=== PATIENT | female | born 1935 | race Caucasian/White ===

== ENCOUNTER 2021-12-02 09:14 | Inpatient (IN) ==
[2021-12-02 10:23] LABS: Basophils % 0.5 % (0.0-0.8); Eosinophils # 0.2 10*3/uL (0.0-0.87); Eosinophils % 1.8 % (0.00-10.9); Hematocrit 36.8 VOL% (35.7-47.0); Hemoglobin 12.5 GM/DL (12.0-16.0); Immature Granulocytes % 0.3 %; Immature Granulocytes Absolute 0.03 #; Lymphocytes # 2.1 10*3/uL (1.4-4.0); Lymphocytes % 23.5 % (21.3-54.2); Mean Corpuscular Volume 91.8 FL (87-102); Mean Platelet Volume 10.2 FL (9.6-12.0); Monocytes % 11.2 % (1.7-12.7); Neutrophils % 62.7 % (38.7-73.9); Platelet Count 221 T/CUMM (130-400); Red Blood Count 4.01 MC/CUMM (3.8-5.5); White Blood Count 8.7 T/CUMM (4-12)
[2021-12-02 10:37] LABS: Albumin 2.6 G/DL (3.4-5.0); Bilirubin,Total 0.7 MG/DL (0.20-1.00); Calcium 8.8 MG/DL (8.5-10.1); Osmolality,Calculated 281.1 MOS/KG (273-304); Potassium 4.2 MMOL/L (3.5-5.1); Total Protein 6.6 G/DL (6.4-8.2)
[2021-12-02] MEDS ORDERED: DEXAMETHASONE 4 MG/1 ML VIAL IV STA (12:27)
[2021-12-02] MEDS ORDERED: ACETAMINOPHEN 325 MG TABLET PO PRN (12:47)
[2021-12-02] MEDS ORDERED: ONDANSETRON 4 MG/2 ML VIAL IV PRN (12:47)
[2021-12-02 13:30] LABS: Total Protein 7.2 G/DL (6.4-8.2)
[2021-12-02] MEDS ORDERED: GLUCAGON 1 MG VIAL IM PRN (15:24)
[2021-12-02] MEDS ORDERED: DEXTROSE 10% 250 ML BAG IV PRN (15:40)
[2021-12-02] MEDS: DEXAMETHASONE 10 MG/1 ML VIAL IV SCH (17:20)
[2021-12-02 18:10] LABS: Urine Appearance Cloudy (Clear); Urine Color Light Yellow (Yellow)
[2021-12-02 18:11] LABS: Bilirubin,Urine Negative (Negative); Blood, Urine Moderate mg/dL (Negative); Glucose,Urine (UA) 100 mg/dL (Negative); Ketones,Urine Negative (Negative); Nitrite,Urine Negative (Negative); Protein,Urine 30 mg/dL (Negative); Urine Urobilinogen 0.2 eU/dL (<2.0)
[2021-12-02] MEDS: DOCUSATE SODIUM 100 MG CAPSULE PO SCH (20:21)
[2021-12-02] MEDS: INSULIN LISPRO 100 UNIT/ML SUBCUT SCH (21:48)
[2021-12-03] MEDS ORDERED: INSULIN LISPRO 100 UNIT/ML SUBCUT ONE (00:27)
[2021-12-03] MEDS ORDERED: oxyCODONE/ACETAMINOPHEN 5-325 MG TABLET PO PRN (03:15)
[2021-12-03] MEDS ORDERED: CLORAZEPATE 7.5 MG TABLET PO PRN ×3 (04:03→20:35)
[2021-12-03] MEDS: DEXAMETHASONE 10 MG/1 ML VIAL IV SCH ×2 (05:50→16:49)
[2021-12-03 07:53] LABS: Immunoglobulin A (Chem) 254 MG/DL (70-400); Immunoglobulin G (Chem) 1270 MG/DL (700-1600); Immunoglobulin M (Chem) 70 MG/DL (40-230); Total Protein (Chem) 7.2 G/DL (6.4-8.3)
[2021-12-03] MEDS: INSULIN LISPRO 100 UNIT/ML SUBCUT SCH ×4 (08:53→21:20)
[2021-12-03] MEDS: amLODIPine 5 MG TABLET PO SCH (08:54)
[2021-12-03] MEDS ORDERED: MAGNESIUM CITRATE 300 ML BOTTLE PO SCH (09:00)
[2021-12-03] MEDS ORDERED: ISOSORBIDE MONONITRATE 20 MG TABLET PO SCH ×2 (09:00→09:30)
[2021-12-03] MEDS ORDERED: CITALOPRAM 20 MG TABLET PO SCH (09:00)
[2021-12-03] MEDS ORDERED: ASPIRIN 325 MG TABLET PO SCH (09:00)
[2021-12-03] MEDS: carvediloL 25 MG TABLET PO SCH ×2 (09:01→16:48)
[2021-12-03] MEDS: DOXAZOSIN 1 MG TABLET PO SCH (09:01)
[2021-12-03] MEDS: LEVOTHYROXINE 25 MCG TABLET PO SCH (10:03)
[2021-12-03 11:05] LABS: Albumin (SPE) 3.3 G/DL (3.2-5.3); Albumin (SPE) Rel % 46.4 %; Alpha 1 (SPE) 0.3 G/DL (0.1-0.4); Alpha 1 (SPE) Rel % 3.8 %; Alpha 2 (SPE) 1.1 G/DL (0.4-1.0); Alpha 2 (SPE) Rel % 15.1 %; Beta (SPE) 0.8 G/DL (0.5-1.1); Beta (SPE) Rel % 11.6 %; Gamma (SPE) Rel % 23.1 %
[2021-12-03 11:09] LABS: Gamma (SPE) 1.7 G/DL (0.7-1.7)
[2021-12-03] MEDS ORDERED: DEXTROSE 50% 25 GM/50 ML VIAL IV PRN (12:47)
[2021-12-03] MEDS: PREGABALIN 50 MG CAPSULE PO SCH (12:51)
[2021-12-03] MEDS: PANTOPRAZOLE 40 MG TABLET PO SCH (12:51)
[2021-12-03] MEDS: MULTIVITAMIN (CENTRUM) TABLET PO SCH (12:51)
[2021-12-03] MEDS: ISOSORBIDE DINITRATE 20 MG TABLET PO SCH (12:51)
[2021-12-03] MEDS: LORATADINE 10 MG TABLET PO SCH (12:52)
[2021-12-03] MEDS: CALCIUM (CARBONATE)/VITAMIN D 600 MG-400 UNIT TABLET PO SCH (12:52)
[2021-12-03] MEDS: POTASSIUM CHLORIDE 20 MEQ TABLET PO SCH (12:52)
[2021-12-03] MEDS: DOCUSATE SODIUM 100 MG CAPSULE PO SCH ×2 (12:52→21:19)
[2021-12-03] MEDS: cloNIDine 0.1 MG TABLET PO SCH (16:48)
[2021-12-03] MEDS: SIMVASTATIN 10 MG TABLET PO SCH (21:19)
[2021-12-03] MEDS: INSULIN GLARGINE 100 UNIT/ML SUBCUT SCH (21:20)
[2021-12-04] MEDS: DEXAMETHASONE 10 MG/1 ML VIAL IV SCH ×2 (04:05→16:53)
[2021-12-04 05:04] LABS: Basophils % 0.1 % (0.0-0.8); Hematocrit 34.5 VOL% (35.7-47.0); Hemoglobin 11.5 GM/DL (12.0-16.0); Immature Granulocytes % 0.8 %; Immature Granulocytes Absolute 0.08 #; Lymphocytes # 1.2 10*3/uL (1.4-4.0); Lymphocytes % 11.8 % (21.3-54.2); Mean Corpuscular HGB Conc 33.3 GM/DL (32-36); Mean Corpuscular Volume 93.2 FL (87-102); Mean Platelet Volume 10.1 FL (9.6-12.0); Neutrophils % 84.3 % (38.7-73.9); Platelet Count 257 T/CUMM (130-400); Red Cell Distribution Width 12.6 % (9.3-17.3); White Blood Count 10.3 T/CUMM (4-12)
[2021-12-04] MEDS: LEVOTHYROXINE 25 MCG TABLET PO SCH (05:15)
[2021-12-04 05:55] LABS: Albumin 2.3 G/DL (3.4-5.0); Bilirubin,Total 0.4 MG/DL (0.20-1.00); Calcium 9.2 MG/DL (8.5-10.1); Osmolality,Calculated 290.1 MOS/KG (273-304); Potassium 4.7 MMOL/L (3.5-5.1); Total Protein 6.7 G/DL (6.4-8.2)
[2021-12-04] MEDS: INSULIN LISPRO 100 UNIT/ML SUBCUT SCH ×4 (08:40→20:41)
[2021-12-04] MEDS: DOCUSATE SODIUM 100 MG CAPSULE PO SCH ×2 (08:54→20:38)
[2021-12-04] MEDS: DOXAZOSIN 1 MG TABLET PO SCH (08:54)
[2021-12-04] MEDS: CITALOPRAM 20 MG TABLET PO SCH (08:54)
[2021-12-04] MEDS: CALCIUM (CARBONATE)/VITAMIN D 600 MG-400 UNIT TABLET PO SCH (08:54)
[2021-12-04] MEDS: amLODIPine 5 MG TABLET PO SCH (08:54)
[2021-12-04] MEDS: carvediloL 25 MG TABLET PO SCH ×2 (08:55→16:55)
[2021-12-04] MEDS: POTASSIUM CHLORIDE 20 MEQ TABLET PO SCH (08:55)
[2021-12-04] MEDS: MULTIVITAMIN (CENTRUM) TABLET PO SCH (08:56)
[2021-12-04] MEDS: PREGABALIN 50 MG CAPSULE PO SCH (08:56)
[2021-12-04] MEDS: LORATADINE 10 MG TABLET PO SCH ×2 (08:56→09:56)
[2021-12-04] MEDS: PANTOPRAZOLE 40 MG TABLET PO SCH (08:56)
[2021-12-04] MEDS ORDERED: CITALOPRAM 20 MG TABLET PO SCH (09:00)
[2021-12-04] MEDS ORDERED: LEVOTHYROXINE 25 MCG TABLET PO SCH (09:00)
[2021-12-04] MEDS: ISOSORBIDE DINITRATE 20 MG TABLET PO SCH (09:56)
[2021-12-04] MEDS: DAPAGLIFLOZIN 10 MG TABLET PO SCH (16:54)
[2021-12-04] MEDS: cloNIDine 0.1 MG TABLET PO SCH (16:55)
[2021-12-04] MEDS: SIMVASTATIN 10 MG TABLET PO SCH (20:39)
[2021-12-04] MEDS: INSULIN GLARGINE 100 UNIT/ML SUBCUT SCH (20:41)
[2021-12-05] MEDS: DEXAMETHASONE 10 MG/1 ML VIAL IV SCH ×2 (03:44→15:55)
[2021-12-05 04:58] LABS: Basophils % 0.1 % (0.0-0.8); Hematocrit 35.1 VOL% (35.7-47.0); Hemoglobin 11.9 GM/DL (12.0-16.0); Immature Granulocytes % 1.2 %; Immature Granulocytes Absolute 0.12 #; Lymphocytes # 1.2 10*3/uL (1.4-4.0); Lymphocytes % 11.3 % (21.3-54.2); Mean Corpuscular HGB Conc 33.9 GM/DL (32-36); Mean Corpuscular Volume 92.9 FL (87-102); Mean Platelet Volume 10.2 FL (9.6-12.0); Monocytes % 2.5 % (1.7-12.7); Neutrophils % 84.9 % (38.7-73.9); Platelet Count 270 T/CUMM (130-400); Red Blood Count 3.78 MC/CUMM (3.8-5.5); Red Cell Distribution Width 12.7 % (9.3-17.3); White Blood Count 10.2 T/CUMM (4-12)
[2021-12-05 05:19] LABS: Calcium 9.1 MG/DL (8.5-10.1); Osmolality,Calculated 286.7 MOS/KG (273-304); Potassium 4.2 MMOL/L (3.5-5.1)
[2021-12-05] MEDS: LEVOTHYROXINE 25 MCG TABLET PO SCH (06:19)
[2021-12-05] MEDS ORDERED: ALUMINUM/MAGNES/SIMETH MAX STR 30 ML UDCUP PO PRN (07:04)
[2021-12-05] MEDS: INSULIN LISPRO 100 UNIT/ML SUBCUT SCH ×3 (08:52→17:30)
[2021-12-05] MEDS: CALCIUM (CARBONATE)/VITAMIN D 600 MG-400 UNIT TABLET PO SCH (08:55)
[2021-12-05] MEDS: DAPAGLIFLOZIN 10 MG TABLET PO SCH (08:55)
[2021-12-05] MEDS: PANTOPRAZOLE 40 MG TABLET PO SCH (08:55)
[2021-12-05] MEDS: carvediloL 25 MG TABLET PO SCH ×2 (08:55→17:30)
[2021-12-05] MEDS: MULTIVITAMIN (CENTRUM) TABLET PO SCH (08:56)
[2021-12-05] MEDS: DOCUSATE SODIUM 100 MG CAPSULE PO SCH (08:56)
[2021-12-05] MEDS: PREGABALIN 50 MG CAPSULE PO SCH (08:56)
[2021-12-05] MEDS: CITALOPRAM 20 MG TABLET PO SCH (08:56)
[2021-12-05] MEDS: ISOSORBIDE DINITRATE 20 MG TABLET PO SCH (08:57)
[2021-12-05] MEDS: POTASSIUM CHLORIDE 20 MEQ TABLET PO SCH (08:57)
[2021-12-05] MEDS: LORATADINE 10 MG TABLET PO SCH ×2 (08:57)
[2021-12-05] MEDS ORDERED: DOXAZOSIN 1 MG TABLET PO SCH (09:00)
[2021-12-05] MEDS ORDERED: amLODIPine 5 MG TABLET PO SCH (09:00)
[2021-12-05] MEDS ORDERED: SODIUM CHLORIDE 0.45% 1,000 ML IV SCH (13:30)
[2021-12-05] MEDS ORDERED: DIAZEPAM 5 MG TABLET PO ONE (13:30)
[2021-12-05] MEDS: cloNIDine 0.1 MG TABLET PO SCH (15:55)
[2021-12-05 16:44] VITALS: BP 129/50
[2021-12-05] MEDS ORDERED: INSULIN GLARGINE 100 UNIT/ML SUBCUT SCH (21:00)
[2021-12-08 21:21] LABS: Fr Urinary Kappa Excretion/24h 50.47 mg/d; Fr Urinary Lambda Excret/24h 4.24 mg/d; Fr Urinary Lambda Light Chain 3.03 mg/L (0.00-3.79); Free Urinary Kappa Light Chain 36.05 mg/L (0.00-32.90); IF FLC Collection Duration 24 hr; IF FLC Collection Volume 1400 mL; IF FLC Total Protein 84 mg/d (<=150)
== END 2021-12-05 19:37 | disposition hospice, home (50) | DRG 478 ==
LOC: N.ED 09:14 → N.EDINP 12:47 → N.3E 13:28
PROVIDERS: ADMIT Internal Medicine; ATTEND Internal Medicine

== ENCOUNTER 2021-12-11 14:11 | Inpatient (IN) ==
[2021-12-11] MEDS ORDERED: ACETAMINOPHEN 325 MG TABLET PO PRN ×2 (21:32→21:54)
[2021-12-11] MEDS ORDERED: ONDANSETRON 4 MG/2 ML VIAL IV PRN ×2 (21:32→21:54)
[2021-12-11] MEDS ORDERED: KETOROLAC 30 MG/1 ML VIAL IV PRN (21:34)
[2021-12-11] MEDS ORDERED: GLUCAGON 1 MG VIAL IM PRN ×2 (21:34→21:54)
[2021-12-11] MEDS ORDERED: traMADol 50 MG TABLET PO PRN (21:34)
[2021-12-11] MEDS ORDERED: MAGNESIUM HYDROXIDE SUSP 30 ML UDCUP PO PRN (21:41)
[2021-12-11] MEDS ORDERED: ACETAMINOPHEN 500 MG TABLET PO PRN (21:54)
[2021-12-11] MEDS ORDERED: DEXTROSE 10% 250 ML BAG IV PRN ×2 (21:54→22:00)
[2021-12-11] MEDS ORDERED: NITROGLYCERIN SL 0.4 MG TABLET SL PRN (21:54)
[2021-12-11] MEDS ORDERED: NON-FORMULARY MEDICATION (Docusate Sodium Cap [Colace Cap] 100 MG) PO SCH (22:15)
[2021-12-11 22:20] LABS: Hematocrit 36.9 VOL% (35.7-47.0); Hemoglobin 12.2 GM/DL (12.0-16.0); Immature Granulocytes % 0.8 %; Immature Granulocytes Absolute 0.07 #; Lymphocytes % 11.8 % (21.3-54.2); Mean Corpuscular HGB Conc 33.1 GM/DL (32-36); Mean Corpuscular Volume 92.9 FL (87-102); Mean Platelet Volume 9.4 FL (9.6-12.0); Monocytes # 0.5 10*3/uL (0.11-0.8); Monocytes % 6.3 % (1.7-12.7); Neutrophils % 81.1 % (38.7-73.9); Platelet Count 228 T/CUMM (130-400); Red Blood Count 3.97 MC/CUMM (3.8-5.5); Red Cell Distribution Width 13.2 % (9.3-17.3); White Blood Count 8.4 T/CUMM (4-12)
[2021-12-11 22:37] LABS: Albumin 2.3 G/DL (3.4-5.0); Bilirubin,Total 0.4 MG/DL (0.20-1.00); Osmolality,Calculated 298.7 MOS/KG (273-304); Potassium 4.3 MMOL/L (3.5-5.1); Total Protein 5.8 G/DL (6.4-8.2)
[2021-12-11] MEDS ORDERED: CLORAZEPATE 7.5 MG TABLET PO PRN (23:00)
[2021-12-11] MEDS: PREGABALIN 50 MG CAPSULE PO SCH (23:28)
[2021-12-11] MEDS: SODIUM CHLORIDE 0.9% 1,000 ML IV SCH (23:29)
[2021-12-12 05:05] LABS: Basophils % 0.1 % (0.0-0.8); Eosinophils % 0.2 % (0.00-10.9); Hematocrit 36.2 VOL% (35.7-47.0); Immature Granulocytes % 0.9 %; Immature Granulocytes Absolute 0.09 #; Lymphocytes # 1.5 10*3/uL (1.4-4.0); Mean Corpuscular HGB Conc 33.1 GM/DL (32-36); Mean Corpuscular Volume 92.8 FL (87-102); Mean Platelet Volume 9.9 FL (9.6-12.0); Monocytes # 0.8 10*3/uL (0.11-0.8); Monocytes % 8.4 % (1.7-12.7); Neutrophils % 74.4 % (38.7-73.9); Platelet Count 226 T/CUMM (130-400); Red Cell Distribution Width 13.1 % (9.3-17.3); White Blood Count 9.7 T/CUMM (4-12)
[2021-12-12] MEDS: LEVOTHYROXINE 25 MCG TABLET PO SCH (06:12)
[2021-12-12] MEDS ORDERED: LORATADINE 10 MG TABLET PO SCH (09:00)
[2021-12-12] MEDS: ASPIRIN EC 81 MG TABLET PO SCH (09:15)
[2021-12-12] MEDS: POTASSIUM CHLORIDE 20 MEQ TABLET PO SCH (09:15)
[2021-12-12] MEDS: PREGABALIN 50 MG CAPSULE PO SCH ×2 (09:15→21:03)
[2021-12-12] MEDS: MULTIVITAMIN (CENTRUM) TABLET PO SCH (09:15)
[2021-12-12] MEDS: carvediloL 25 MG TABLET PO SCH ×2 (09:15→21:03)
[2021-12-12] MEDS: amLODIPine 5 MG TABLET PO SCH (09:15)
[2021-12-12] MEDS: DOCUSATE SODIUM 100 MG CAPSULE PO SCH ×2 (09:16→21:02)
[2021-12-12] MEDS: ISOSORBIDE DINITRATE 20 MG TABLET PO SCH (09:16)
[2021-12-12] MEDS: PANTOPRAZOLE 40 MG TABLET PO SCH (09:16)
[2021-12-12] MEDS: SIMVASTATIN 10 MG TABLET PO SCH (09:16)
[2021-12-12] MEDS: DOXAZOSIN 1 MG TABLET PO SCH (09:16)
[2021-12-12] MEDS: CITALOPRAM 20 MG TABLET PO SCH (09:16)
[2021-12-12] MEDS: INSULIN REGULAR 100 UNIT/ML SUBCUT SCH ×4 (09:27→21:02)
[2021-12-12] MEDS: MAGNESIUM CITRATE 300 ML BOTTLE PO SCH (10:40)
[2021-12-12] MEDS ORDERED: DEXAMETHASONE INJ 40 MG in SODIUM CHLORIDE 0.9% 50 ML IV ONE (11:00)
[2021-12-12] MEDS: CALCIUM (CARBONATE)/VITAMIN D 600 MG-400 UNIT TABLET PO SCH (11:11)
[2021-12-12] MEDS: DAPAGLIFLOZIN 10 MG TABLET PO SCH (11:11)
[2021-12-12] MEDS: LORATADINE 10 MG TABLET PO SCH (11:11)
[2021-12-12] MEDS ORDERED: SODIUM CHLORIDE 0.9% SUBCUT ONE (12:00)
[2021-12-12] MEDS ORDERED: BORTEZOMIB SUBCUT ONE (12:00)
[2021-12-12] MEDS: SODIUM CHLORIDE 0.9% 1,000 ML IV SCH (15:21)
[2021-12-12] MEDS: cloNIDine 0.1 MG TABLET PO SCH (15:21)
[2021-12-12] MEDS: oxyCODONE/ACETAMINOPHEN 5-325 MG TABLET PO PRN (15:22)
[2021-12-12] MEDS: DEXAMETHASONE 10 MG/1 ML VIAL IV SCH (19:51)
[2021-12-12] MEDS: INSULIN GLARGINE 100 UNIT/ML SUBCUT SCH (21:02)
[2021-12-12] MEDS: DEXAMETHASONE INJ 20 MG in SODIUM CHLORIDE 0.9% 50 ML IV SCH (21:12)
[2021-12-13] MEDS: SODIUM CHLORIDE 0.9% 1,000 ML IV SCH ×2 (00:10→13:49)
[2021-12-13] MEDS: oxyCODONE/ACETAMINOPHEN 5-325 MG TABLET PO PRN ×2 (01:00→17:46)
[2021-12-13 04:57] LABS: Hematocrit 35.7 VOL% (35.7-47.0); Hemoglobin 11.9 GM/DL (12.0-16.0); Immature Granulocytes % 1.1 %; Immature Granulocytes Absolute 0.09 #; Lymphocytes # 0.9 10*3/uL (1.4-4.0); Lymphocytes % 10.4 % (21.3-54.2); Mean Corpuscular HGB Conc 33.3 GM/DL (32-36); Mean Corpuscular Volume 92.7 FL (87-102); Mean Platelet Volume 9.8 FL (9.6-12.0); Monocytes # 0.1 10*3/uL (0.11-0.8); Monocytes % 1.7 % (1.7-12.7); Neutrophils % 86.8 % (38.7-73.9); Platelet Count 200 T/CUMM (130-400); Red Blood Count 3.85 MC/CUMM (3.8-5.5); Red Cell Distribution Width 13.2 % (9.3-17.3); White Blood Count 8.3 T/CUMM (4-12)
[2021-12-13 05:22] LABS: Albumin 2.3 G/DL (3.4-5.0); Bilirubin,Total 0.5 MG/DL (0.20-1.00); Calcium 8.1 MG/DL (8.5-10.1); Osmolality,Calculated 293.3 MOS/KG (273-304); Potassium 4.4 MMOL/L (3.5-5.1); Total Protein 5.8 G/DL (6.4-8.2)
[2021-12-13] MEDS: LEVOTHYROXINE 25 MCG TABLET PO SCH (06:20)
[2021-12-13] MEDS: carvediloL 25 MG TABLET PO SCH ×2 (09:05→21:47)
[2021-12-13] MEDS: ASPIRIN EC 81 MG TABLET PO SCH (09:06)
[2021-12-13] MEDS: DOCUSATE SODIUM 100 MG CAPSULE PO SCH ×2 (09:06→21:47)
[2021-12-13] MEDS: ISOSORBIDE DINITRATE 20 MG TABLET PO SCH (09:06)
[2021-12-13] MEDS: POTASSIUM CHLORIDE 20 MEQ TABLET PO SCH (09:06)
[2021-12-13] MEDS: DAPAGLIFLOZIN 10 MG TABLET PO SCH (09:06)
[2021-12-13] MEDS: SIMVASTATIN 10 MG TABLET PO SCH (09:06)
[2021-12-13] MEDS: PREGABALIN 50 MG CAPSULE PO SCH ×2 (09:06→21:48)
[2021-12-13] MEDS: CITALOPRAM 20 MG TABLET PO SCH (09:06)
[2021-12-13] MEDS: CALCIUM (CARBONATE)/VITAMIN D 600 MG-400 UNIT TABLET PO SCH (09:07)
[2021-12-13] MEDS: amLODIPine 5 MG TABLET PO SCH (09:07)
[2021-12-13] MEDS: MULTIVITAMIN (CENTRUM) TABLET PO SCH (09:07)
[2021-12-13] MEDS: DOXAZOSIN 1 MG TABLET PO SCH (09:07)
[2021-12-13] MEDS: PANTOPRAZOLE 40 MG TABLET PO SCH (09:07)
[2021-12-13] MEDS: LORATADINE 10 MG TABLET PO SCH (09:07)
[2021-12-13] MEDS: INSULIN REGULAR 100 UNIT/ML SUBCUT SCH ×4 (09:08→21:49)
[2021-12-13] MEDS: MAGNESIUM CITRATE 300 ML BOTTLE PO SCH (09:45)
[2021-12-13] MEDS: DEXAMETHASONE INJ 20 MG in SODIUM CHLORIDE 0.9% 50 ML IV SCH ×2 (10:56→23:05)
[2021-12-13 12:50] LABS: Kappa Free Light Chain 1.29 mg/dL; Lambda Free Light Chain 0.85 mg/dL
[2021-12-13] MEDS: cloNIDine 0.1 MG TABLET PO SCH (15:18)
[2021-12-13] MEDS: INSULIN GLARGINE 100 UNIT/ML SUBCUT SCH (21:48)
[2021-12-14] MEDS: LEVOTHYROXINE 25 MCG TABLET PO SCH (06:46)
[2021-12-14] MEDS ORDERED: ASPIRIN EC 81 MG TABLET PO SCH (08:00)
[2021-12-14] MEDS: ISOSORBIDE DINITRATE 20 MG TABLET PO SCH (09:35)
[2021-12-14] MEDS: PANTOPRAZOLE 40 MG TABLET PO SCH (09:35)
[2021-12-14] MEDS: DAPAGLIFLOZIN 10 MG TABLET PO SCH (09:35)
[2021-12-14] MEDS: SIMVASTATIN 10 MG TABLET PO SCH (09:36)
[2021-12-14] MEDS: PREGABALIN 50 MG CAPSULE PO SCH ×2 (09:36→21:29)
[2021-12-14] MEDS: ASPIRIN 325 MG TABLET PO SCH (09:36)
[2021-12-14] MEDS: amLODIPine 5 MG TABLET PO SCH (09:36)
[2021-12-14] MEDS: CALCIUM (CARBONATE)/VITAMIN D 600 MG-400 UNIT TABLET PO SCH (09:36)
[2021-12-14] MEDS: POTASSIUM CHLORIDE 20 MEQ TABLET PO SCH (09:36)
[2021-12-14] MEDS: LORATADINE 10 MG TABLET PO SCH (09:36)
[2021-12-14] MEDS: carvediloL 25 MG TABLET PO SCH ×2 (09:36→21:28)
[2021-12-14] MEDS: CITALOPRAM 20 MG TABLET PO SCH (09:37)
[2021-12-14] MEDS: MULTIVITAMIN (CENTRUM) TABLET PO SCH (09:37)
[2021-12-14] MEDS: DOXAZOSIN 1 MG TABLET PO SCH (09:37)
[2021-12-14] MEDS: INSULIN REGULAR 100 UNIT/ML SUBCUT SCH ×4 (09:37→21:30)
[2021-12-14] MEDS: DOCUSATE SODIUM 100 MG CAPSULE PO SCH ×2 (09:37→21:29)
[2021-12-14] MEDS: MAGNESIUM CITRATE 300 ML BOTTLE PO SCH (10:01)
[2021-12-14] MEDS: DEXAMETHASONE INJ 20 MG in SODIUM CHLORIDE 0.9% 50 ML IV SCH ×2 (10:53→21:40)
[2021-12-14] MEDS: SODIUM CHLORIDE 0.9% 1,000 ML IV SCH (10:54)
[2021-12-14] MEDS: METHOCARBAMOL 500 MG TABLET PO SCH ×2 (14:13→21:28)
[2021-12-14] MEDS: cloNIDine 0.1 MG TABLET PO SCH (14:13)
[2021-12-14] MEDS: INSULIN GLARGINE 100 UNIT/ML SUBCUT SCH (21:31)
[2021-12-15] MEDS: SODIUM CHLORIDE 0.9% 1,000 ML IV SCH ×3 (03:21→23:08)
[2021-12-15 05:54] LABS: Basophils % 0.1 % (0.0-0.8); Hematocrit 32.5 VOL% (35.7-47.0); Hemoglobin 10.6 GM/DL (12.0-16.0); Immature Granulocytes % 1.4 %; Immature Granulocytes Absolute 0.13 #; Lymphocytes # 0.7 10*3/uL (1.4-4.0); Lymphocytes % 7.2 % (21.3-54.2); Mean Corpuscular HGB Conc 32.6 GM/DL (32-36); Mean Corpuscular Volume 94.5 FL (87-102); Mean Platelet Volume 10.2 FL (9.6-12.0); Monocytes # 0.2 10*3/uL (0.11-0.8); Monocytes % 2.2 % (1.7-12.7); Neutrophils % 89.1 % (38.7-73.9); Platelet Count 172 T/CUMM (130-400); Red Blood Count 3.44 MC/CUMM (3.8-5.5); Red Cell Distribution Width 13.7 % (9.3-17.3); White Blood Count 9.5 T/CUMM (4-12)
[2021-12-15] MEDS: LEVOTHYROXINE 25 MCG TABLET PO SCH (05:57)
[2021-12-15 06:01] LABS: Calcium 7.6 MG/DL (8.5-10.1); Osmolality,Calculated 285.5 MOS/KG (273-304); Potassium 3.9 MMOL/L (3.5-5.1)
[2021-12-15] MEDS: amLODIPine 5 MG TABLET PO SCH (09:23)
[2021-12-15] MEDS: ASPIRIN 325 MG TABLET PO SCH (09:23)
[2021-12-15] MEDS: LORATADINE 10 MG TABLET PO SCH (09:23)
[2021-12-15] MEDS: CALCIUM (CARBONATE)/VITAMIN D 600 MG-400 UNIT TABLET PO SCH (09:23)
[2021-12-15] MEDS: SIMVASTATIN 10 MG TABLET PO SCH (09:24)
[2021-12-15] MEDS: DOCUSATE SODIUM 100 MG CAPSULE PO SCH ×2 (09:24→22:55)
[2021-12-15] MEDS: METHOCARBAMOL 500 MG TABLET PO SCH ×2 (09:24→22:55)
[2021-12-15] MEDS: CITALOPRAM 20 MG TABLET PO SCH (09:24)
[2021-12-15] MEDS: PANTOPRAZOLE 40 MG TABLET PO SCH (09:24)
[2021-12-15] MEDS: PREGABALIN 50 MG CAPSULE PO SCH ×2 (09:24→22:56)
[2021-12-15] MEDS: DAPAGLIFLOZIN 10 MG TABLET PO SCH (09:24)
[2021-12-15] MEDS: DOXAZOSIN 1 MG TABLET PO SCH (09:24)
[2021-12-15] MEDS: MULTIVITAMIN (CENTRUM) TABLET PO SCH (09:24)
[2021-12-15] MEDS: carvediloL 25 MG TABLET PO SCH ×2 (09:24→22:55)
[2021-12-15] MEDS: ISOSORBIDE DINITRATE 20 MG TABLET PO SCH (09:24)
[2021-12-15] MEDS: POTASSIUM CHLORIDE 20 MEQ TABLET PO SCH (09:25)
[2021-12-15] MEDS: MAGNESIUM CITRATE 300 ML BOTTLE PO SCH (09:28)
[2021-12-15] MEDS: INSULIN REGULAR 100 UNIT/ML SUBCUT SCH ×4 (09:28→23:27)
[2021-12-15] MEDS: DEXAMETHASONE INJ 20 MG in SODIUM CHLORIDE 0.9% 50 ML IV SCH ×2 (09:31→22:57)
[2021-12-15] MEDS: cloNIDine 0.1 MG TABLET PO SCH ×2 (16:42→22:55)
[2021-12-15] MEDS: INSULIN GLARGINE 100 UNIT/ML SUBCUT SCH (23:10)
[2021-12-16] MEDS: INSULIN REGULAR 100 UNIT/ML SUBCUT SCH ×4 (08:29→21:30)
[2021-12-16] MEDS: METHOCARBAMOL 500 MG TABLET PO SCH ×2 (09:39→21:30)
[2021-12-16] MEDS: LEVOTHYROXINE 25 MCG TABLET PO SCH (09:39)
[2021-12-16] MEDS: PREGABALIN 50 MG CAPSULE PO SCH ×2 (09:39→21:30)
[2021-12-16] MEDS: CALCIUM (CARBONATE)/VITAMIN D 600 MG-400 UNIT TABLET PO SCH (09:39)
[2021-12-16] MEDS: ASPIRIN 325 MG TABLET PO SCH (09:39)
[2021-12-16] MEDS: CITALOPRAM 20 MG TABLET PO SCH (09:40)
[2021-12-16] MEDS: SIMVASTATIN 10 MG TABLET PO SCH (09:40)
[2021-12-16] MEDS: PANTOPRAZOLE 40 MG TABLET PO SCH (09:40)
[2021-12-16] MEDS: LORATADINE 10 MG TABLET PO SCH (09:40)
[2021-12-16] MEDS: MULTIVITAMIN (CENTRUM) TABLET PO SCH (09:40)
[2021-12-16] MEDS: amLODIPine 5 MG TABLET PO SCH (09:40)
[2021-12-16] MEDS: DOCUSATE SODIUM 100 MG CAPSULE PO SCH ×2 (09:40→21:30)
[2021-12-16] MEDS: ISOSORBIDE DINITRATE 20 MG TABLET PO SCH (09:40)
[2021-12-16] MEDS: POTASSIUM CHLORIDE 20 MEQ TABLET PO SCH (09:40)
[2021-12-16] MEDS: DOXAZOSIN 1 MG TABLET PO SCH (09:40)
[2021-12-16] MEDS: DEXAMETHASONE INJ 20 MG in SODIUM CHLORIDE 0.9% 50 ML IV SCH ×2 (09:41→21:30)
[2021-12-16] MEDS: DAPAGLIFLOZIN 10 MG TABLET PO SCH (09:41)
[2021-12-16] MEDS: carvediloL 25 MG TABLET PO SCH ×2 (09:41→21:30)
[2021-12-16] MEDS: MAGNESIUM CITRATE 300 ML BOTTLE PO SCH (09:42)
[2021-12-16] MEDS: SODIUM CHLORIDE 0.9% 1,000 ML IV SCH (12:59)
[2021-12-16] MEDS: cloNIDine 0.1 MG TABLET PO SCH (16:59)
[2021-12-16] MEDS: INSULIN GLARGINE 100 UNIT/ML SUBCUT SCH (21:30)
[2021-12-17] MEDS: SODIUM CHLORIDE 0.9% 1,000 ML IV SCH ×2 (02:20→11:57)
[2021-12-17 05:08] LABS: Basophils % 0.1 % (0.0-0.8); Hematocrit 32.7 VOL% (35.7-47.0); Hemoglobin 10.7 GM/DL (12.0-16.0); Immature Granulocytes % 1.2 %; Immature Granulocytes Absolute 0.13 #; Lymphocytes # 0.6 10*3/uL (1.4-4.0); Lymphocytes % 5.6 % (21.3-54.2); Mean Corpuscular HGB Conc 32.7 GM/DL (32-36); Mean Platelet Volume 10.6 FL (9.6-12.0); Monocytes # 0.3 10*3/uL (0.11-0.8); Monocytes % 2.8 % (1.7-12.7); Neutrophils % 90.3 % (38.7-73.9); Platelet Count 166 T/CUMM (130-400); Red Blood Count 3.48 MC/CUMM (3.8-5.5); White Blood Count 11.1 T/CUMM (4-12)
[2021-12-17 05:40] LABS: Calcium 7.7 MG/DL (8.5-10.1); Osmolality,Calculated 292.8 MOS/KG (273-304); Potassium 3.8 MMOL/L (3.5-5.1)
[2021-12-17] MEDS: LEVOTHYROXINE 25 MCG TABLET PO SCH (06:31)
[2021-12-17] MEDS: INSULIN REGULAR 100 UNIT/ML SUBCUT SCH ×4 (08:15→21:43)
[2021-12-17 08:42] LABS: Albumin 2.1 G/DL (3.4-5.0); Bilirubin,Total 0.5 MG/DL (0.20-1.00); Calcium 7.9 MG/DL (8.5-10.1); Potassium 3.7 MMOL/L (3.5-5.1); Total Protein 5.1 G/DL (6.4-8.2)
[2021-12-17] MEDS: METHOCARBAMOL 500 MG TABLET PO SCH ×2 (09:00→21:42)
[2021-12-17] MEDS: PREGABALIN 50 MG CAPSULE PO SCH ×2 (09:00→21:42)
[2021-12-17] MEDS: PANTOPRAZOLE 40 MG TABLET PO SCH (09:00)
[2021-12-17] MEDS: DOCUSATE SODIUM 100 MG CAPSULE PO SCH ×2 (09:01→21:42)
[2021-12-17] MEDS: CITALOPRAM 20 MG TABLET PO SCH (09:01)
[2021-12-17] MEDS: amLODIPine 5 MG TABLET PO SCH (09:01)
[2021-12-17] MEDS: ISOSORBIDE DINITRATE 20 MG TABLET PO SCH (09:02)
[2021-12-17] MEDS: POTASSIUM CHLORIDE 20 MEQ TABLET PO SCH (09:02)
[2021-12-17] MEDS: LORATADINE 10 MG TABLET PO SCH (09:02)
[2021-12-17] MEDS: DAPAGLIFLOZIN 10 MG TABLET PO SCH (09:02)
[2021-12-17] MEDS: ASPIRIN 325 MG TABLET PO SCH (09:02)
[2021-12-17] MEDS: carvediloL 25 MG TABLET PO SCH ×2 (09:02→21:42)
[2021-12-17] MEDS: CALCIUM (CARBONATE)/VITAMIN D 600 MG-400 UNIT TABLET PO SCH (09:02)
[2021-12-17] MEDS: SIMVASTATIN 10 MG TABLET PO SCH (09:02)
[2021-12-17] MEDS: MULTIVITAMIN (CENTRUM) TABLET PO SCH (09:02)
[2021-12-17] MEDS: DOXAZOSIN 1 MG TABLET PO SCH (09:02)
[2021-12-17] MEDS: MAGNESIUM CITRATE 300 ML BOTTLE PO SCH (09:15)
[2021-12-17] MEDS ORDERED: SODIUM CHLORIDE 0.9% SUBCUT ONE ×2 (11:00→13:00)
[2021-12-17] MEDS ORDERED: BORTEZOMIB SUBCUT ONE ×2 (11:00→13:00)
[2021-12-17] MEDS: DEXAMETHASONE INJ 20 MG in SODIUM CHLORIDE 0.9% 50 ML IV SCH ×2 (11:55→23:07)
[2021-12-17] MEDS: cloNIDine 0.1 MG TABLET PO SCH (14:17)
[2021-12-17] MEDS: INSULIN GLARGINE 100 UNIT/ML SUBCUT SCH (21:43)
[2021-12-18] MEDS: SODIUM CHLORIDE 0.9% 1,000 ML IV SCH ×2 (02:57→17:50)
[2021-12-18 05:42] LABS: Hemoglobin 10.6 GM/DL (12.0-16.0); Immature Granulocytes % 1.5 %; Immature Granulocytes Absolute 0.17 #; Lymphocytes # 0.9 10*3/uL (1.4-4.0); Lymphocytes % 7.4 % (21.3-54.2); Mean Corpuscular HGB Conc 33.1 GM/DL (32-36); Mean Corpuscular Volume 94.7 FL (87-102); Mean Platelet Volume 10.8 FL (9.6-12.0); Monocytes # 0.6 10*3/uL (0.11-0.8); Monocytes % 5.4 % (1.7-12.7); Neutrophils % 85.7 % (38.7-73.9); Platelet Count 147 T/CUMM (130-400); Red Blood Count 3.38 MC/CUMM (3.8-5.5); Red Cell Distribution Width 14.1 % (9.3-17.3); White Blood Count 11.5 T/CUMM (4-12)
[2021-12-18] MEDS: LEVOTHYROXINE 25 MCG TABLET PO SCH (05:43)
[2021-12-18 05:56] LABS: Albumin 2.1 G/DL (3.4-5.0); Bilirubin,Total 0.4 MG/DL (0.20-1.00); Calcium 7.9 MG/DL (8.5-10.1); Potassium 3.7 MMOL/L (3.5-5.1); Total Protein 4.9 G/DL (6.4-8.2)
[2021-12-18] MEDS: INSULIN REGULAR 100 UNIT/ML SUBCUT SCH ×4 (07:55→21:26)
[2021-12-18] MEDS: MULTIVITAMIN (CENTRUM) TABLET PO SCH (08:38)
[2021-12-18] MEDS: CALCIUM (CARBONATE)/VITAMIN D 600 MG-400 UNIT TABLET PO SCH (08:38)
[2021-12-18] MEDS: amLODIPine 5 MG TABLET PO SCH (08:38)
[2021-12-18] MEDS: carvediloL 25 MG TABLET PO SCH ×2 (08:38→21:16)
[2021-12-18] MEDS: ASPIRIN 325 MG TABLET PO SCH (08:38)
[2021-12-18] MEDS: DOCUSATE SODIUM 100 MG CAPSULE PO SCH ×2 (08:38→21:15)
[2021-12-18] MEDS: SIMVASTATIN 10 MG TABLET PO SCH (08:38)
[2021-12-18] MEDS: PREGABALIN 50 MG CAPSULE PO SCH ×2 (08:38→21:16)
[2021-12-18] MEDS: ISOSORBIDE DINITRATE 20 MG TABLET PO SCH (08:39)
[2021-12-18] MEDS: LORATADINE 10 MG TABLET PO SCH (08:39)
[2021-12-18] MEDS: POTASSIUM CHLORIDE 20 MEQ TABLET PO SCH (08:39)
[2021-12-18] MEDS: METHOCARBAMOL 500 MG TABLET PO SCH ×2 (08:39→21:16)
[2021-12-18] MEDS: CITALOPRAM 20 MG TABLET PO SCH (08:39)
[2021-12-18] MEDS: PANTOPRAZOLE 40 MG TABLET PO SCH (08:39)
[2021-12-18] MEDS: DAPAGLIFLOZIN 10 MG TABLET PO SCH (08:39)
[2021-12-18] MEDS: DOXAZOSIN 1 MG TABLET PO SCH (08:45)
[2021-12-18] MEDS: DEXAMETHASONE INJ 20 MG in SODIUM CHLORIDE 0.9% 50 ML IV SCH ×2 (10:02→21:34)
[2021-12-18] MEDS: MAGNESIUM CITRATE 300 ML BOTTLE PO SCH (10:17)
[2021-12-18] MEDS: cloNIDine 0.1 MG TABLET PO SCH (16:27)
[2021-12-18] MEDS: INSULIN GLARGINE 100 UNIT/ML SUBCUT SCH ×2 (21:27→21:32)
[2021-12-19 04:45] LABS: Hematocrit 33.9 VOL% (35.7-47.0); Hemoglobin 11.2 GM/DL (12.0-16.0); Immature Granulocytes % 1.3 %; Immature Granulocytes Absolute 0.13 #; Lymphocytes # 0.5 10*3/uL (1.4-4.0); Lymphocytes % 4.8 % (21.3-54.2); Mean Corpuscular Volume 93.9 FL (87-102); Mean Platelet Volume 10.6 FL (9.6-12.0); Monocytes # 0.1 10*3/uL (0.11-0.8); Monocytes % 1.4 % (1.7-12.7); Neutrophils % 92.5 % (38.7-73.9); Platelet Count 139 T/CUMM (130-400); Red Blood Count 3.61 MC/CUMM (3.8-5.5); Red Cell Distribution Width 14.1 % (9.3-17.3); White Blood Count 10.1 T/CUMM (4-12)
[2021-12-19 05:10] LABS: Albumin 2.2 G/DL (3.4-5.0); Bilirubin,Total 0.5 MG/DL (0.20-1.00); Calcium 7.3 MG/DL (8.5-10.1); Osmolality,Calculated 294.8 MOS/KG (273-304); Potassium 3.8 MMOL/L (3.5-5.1); Total Protein 5.3 G/DL (6.4-8.2)
[2021-12-19] MEDS: LEVOTHYROXINE 25 MCG TABLET PO SCH (05:16)
[2021-12-19 05:24] LABS: Hypersegmented Neutrophil SLIGHT; Lymphocytes 5 % (20-55); Total Cells Counted 100
[2021-12-19 05:25] LABS: Microcytosis Slight; Ovalocytes Slight; Platelet Estimate Adequate
[2021-12-19] MEDS: INSULIN REGULAR 100 UNIT/ML SUBCUT SCH ×4 (07:50→21:30)
[2021-12-19] MEDS: DEXAMETHASONE INJ 20 MG in SODIUM CHLORIDE 0.9% 50 ML IV SCH ×2 (09:24→21:18)
[2021-12-19] MEDS: MULTIVITAMIN (CENTRUM) TABLET PO SCH (09:25)
[2021-12-19] MEDS: ASPIRIN 325 MG TABLET PO SCH (09:25)
[2021-12-19] MEDS: DOXAZOSIN 1 MG TABLET PO SCH (09:25)
[2021-12-19] MEDS: DAPAGLIFLOZIN 10 MG TABLET PO SCH (09:26)
[2021-12-19] MEDS: SIMVASTATIN 10 MG TABLET PO SCH (09:26)
[2021-12-19] MEDS: carvediloL 25 MG TABLET PO SCH ×2 (09:26→21:19)
[2021-12-19] MEDS: amLODIPine 5 MG TABLET PO SCH (09:26)
[2021-12-19] MEDS: METHOCARBAMOL 500 MG TABLET PO SCH ×2 (09:26→21:19)
[2021-12-19] MEDS: PREGABALIN 50 MG CAPSULE PO SCH ×2 (09:26→21:19)
[2021-12-19] MEDS: PANTOPRAZOLE 40 MG TABLET PO SCH (09:27)
[2021-12-19] MEDS: CALCIUM (CARBONATE)/VITAMIN D 600 MG-400 UNIT TABLET PO SCH (09:27)
[2021-12-19] MEDS: ISOSORBIDE DINITRATE 20 MG TABLET PO SCH (09:27)
[2021-12-19] MEDS: CITALOPRAM 20 MG TABLET PO SCH (09:27)
[2021-12-19] MEDS: LORATADINE 10 MG TABLET PO SCH (09:27)
[2021-12-19] MEDS: POTASSIUM CHLORIDE 20 MEQ TABLET PO SCH (09:27)
[2021-12-19] MEDS: DOCUSATE SODIUM 100 MG CAPSULE PO SCH ×2 (09:28→21:19)
[2021-12-19] MEDS: MAGNESIUM CITRATE 300 ML BOTTLE PO SCH (10:28)
[2021-12-19] MEDS: cloNIDine 0.1 MG TABLET PO SCH (16:28)
[2021-12-19] MEDS: SODIUM CHLORIDE 0.9% 1,000 ML IV SCH (20:26)
[2021-12-19] MEDS: INSULIN GLARGINE 100 UNIT/ML SUBCUT SCH (21:48)
[2021-12-20 05:39] LABS: Basophils % 0.1 % (0.0-0.8); Hematocrit 33.5 VOL% (35.7-47.0); Hemoglobin 11.1 GM/DL (12.0-16.0); Immature Granulocytes % 0.9 %; Immature Granulocytes Absolute 0.09 #; Lymphocytes # 0.5 10*3/uL (1.4-4.0); Lymphocytes % 5.2 % (21.3-54.2); Mean Corpuscular HGB Conc 33.1 GM/DL (32-36); Mean Corpuscular Volume 94.1 FL (87-102); Mean Platelet Volume 10.8 FL (9.6-12.0); Monocytes # 0.2 10*3/uL (0.11-0.8); Neutrophils % 91.8 % (38.7-73.9); Platelet Count 119 T/CUMM (130-400); Red Blood Count 3.56 MC/CUMM (3.8-5.5); Red Cell Distribution Width 14.4 % (9.3-17.3); White Blood Count 10.3 T/CUMM (4-12)
[2021-12-20 05:58] LABS: Albumin 2.1 G/DL (3.4-5.0); Bilirubin,Total 0.5 MG/DL (0.20-1.00); Calcium 7.6 MG/DL (8.5-10.1); Osmolality,Calculated 297.7 MOS/KG (273-304); Potassium 3.6 MMOL/L (3.5-5.1); Total Protein 5.1 G/DL (6.4-8.2)
[2021-12-20] MEDS: LEVOTHYROXINE 25 MCG TABLET PO SCH (06:16)
[2021-12-20 06:25] LABS: Lymphocytes 4 % (20-55); Platelet Estimate Adequate; Total Cells Counted 100
[2021-12-20] MEDS: INSULIN REGULAR 100 UNIT/ML SUBCUT SCH ×4 (08:06→21:47)
[2021-12-20] MEDS: ASPIRIN 325 MG TABLET PO SCH (11:09)
[2021-12-20] MEDS: MAGNESIUM CITRATE 300 ML BOTTLE PO SCH (11:10)
[2021-12-20] MEDS: DAPAGLIFLOZIN 10 MG TABLET PO SCH (11:10)
[2021-12-20] MEDS: amLODIPine 5 MG TABLET PO SCH (11:10)
[2021-12-20] MEDS: DEXAMETHASONE INJ 20 MG in SODIUM CHLORIDE 0.9% 50 ML IV SCH ×2 (11:10→21:47)
[2021-12-20] MEDS: CITALOPRAM 20 MG TABLET PO SCH (11:11)
[2021-12-20] MEDS: carvediloL 25 MG TABLET PO SCH ×2 (11:11→21:44)
[2021-12-20] MEDS: LORATADINE 10 MG TABLET PO SCH (11:11)
[2021-12-20] MEDS: PREGABALIN 50 MG CAPSULE PO SCH ×2 (11:12→21:44)
[2021-12-20] MEDS: PANTOPRAZOLE 40 MG TABLET PO SCH (11:12)
[2021-12-20] MEDS: CALCIUM (CARBONATE)/VITAMIN D 600 MG-400 UNIT TABLET PO SCH (11:13)
[2021-12-20] MEDS: SIMVASTATIN 10 MG TABLET PO SCH (11:14)
[2021-12-20] MEDS: METHOCARBAMOL 500 MG TABLET PO SCH ×2 (11:18→21:44)
[2021-12-20] MEDS: DOCUSATE SODIUM 100 MG CAPSULE PO SCH ×2 (11:18→21:43)
[2021-12-20] MEDS: ISOSORBIDE DINITRATE 20 MG TABLET PO SCH (11:18)
[2021-12-20] MEDS: POTASSIUM CHLORIDE 20 MEQ TABLET PO SCH (11:18)
[2021-12-20] MEDS: DOXAZOSIN 1 MG TABLET PO SCH (11:19)
[2021-12-20] MEDS: MULTIVITAMIN (CENTRUM) TABLET PO SCH (11:19)
[2021-12-20] MEDS: LIDOCAINE 5% PATCH TRANSDERM SCH (17:15)
[2021-12-20] MEDS: cloNIDine 0.1 MG TABLET PO SCH (18:07)
[2021-12-20] MEDS: hydrALAZINE 25 MG TABLET PO SCH ×2 (18:07→21:46)
[2021-12-20] MEDS: INSULIN GLARGINE 100 UNIT/ML SUBCUT SCH (21:55)
[2021-12-21 04:53] LABS: Hematocrit 31.1 VOL% (35.7-47.0); Hemoglobin 10.3 GM/DL (12.0-16.0); Immature Granulocytes % 0.7 %; Immature Granulocytes Absolute 0.07 #; Lymphocytes # 0.6 10*3/uL (1.4-4.0); Lymphocytes % 6.3 % (21.3-54.2); Mean Corpuscular HGB Conc 33.1 GM/DL (32-36); Mean Corpuscular Volume 94.5 FL (87-102); Mean Platelet Volume 10.7 FL (9.6-12.0); Monocytes # 0.2 10*3/uL (0.11-0.8); Monocytes % 2.3 % (1.7-12.7); Neutrophils % 90.7 % (38.7-73.9); Platelet Count 106 T/CUMM (130-400); Red Blood Count 3.29 MC/CUMM (3.8-5.5); Red Cell Distribution Width 14.6 % (9.3-17.3); White Blood Count 9.6 T/CUMM (4-12)
[2021-12-21] MEDS: LEVOTHYROXINE 25 MCG TABLET PO SCH (05:14)
[2021-12-21 05:17] LABS: Albumin 2.1 G/DL (3.4-5.0); Bilirubin,Total 0.5 MG/DL (0.20-1.00); Calcium 8.3 MG/DL (8.5-10.1); Osmolality,Calculated 296.8 MOS/KG (273-304); Potassium 3.8 MMOL/L (3.5-5.1); Total Protein 4.8 G/DL (6.4-8.2)
[2021-12-21 05:47] LABS: Lymphocytes 6 % (20-55); Platelet Estimate Adequate; Total Cells Counted 100
[2021-12-21] MEDS: PREGABALIN 50 MG CAPSULE PO SCH ×2 (08:58→21:51)
[2021-12-21] MEDS: DOXAZOSIN 1 MG TABLET PO SCH (08:59)
[2021-12-21] MEDS: DAPAGLIFLOZIN 10 MG TABLET PO SCH (08:59)
[2021-12-21] MEDS: hydrALAZINE 25 MG TABLET PO SCH ×3 (08:59→21:50)
[2021-12-21] MEDS: CALCIUM (CARBONATE)/VITAMIN D 600 MG-400 UNIT TABLET PO SCH (08:59)
[2021-12-21] MEDS: amLODIPine 5 MG TABLET PO SCH (08:59)
[2021-12-21] MEDS: ASPIRIN 325 MG TABLET PO SCH (08:59)
[2021-12-21] MEDS: MULTIVITAMIN (CENTRUM) TABLET PO SCH (08:59)
[2021-12-21] MEDS: PANTOPRAZOLE 40 MG TABLET PO SCH (08:59)
[2021-12-21] MEDS: INSULIN REGULAR 100 UNIT/ML SUBCUT SCH ×4 (09:00→21:45)
[2021-12-21] MEDS: METHOCARBAMOL 500 MG TABLET PO SCH ×2 (09:00→21:51)
[2021-12-21] MEDS: SIMVASTATIN 10 MG TABLET PO SCH (09:00)
[2021-12-21] MEDS: POTASSIUM CHLORIDE 20 MEQ TABLET PO SCH (09:00)
[2021-12-21] MEDS: carvediloL 25 MG TABLET PO SCH ×2 (09:00→21:51)
[2021-12-21] MEDS: CITALOPRAM 20 MG TABLET PO SCH (09:00)
[2021-12-21] MEDS: ISOSORBIDE DINITRATE 20 MG TABLET PO SCH (09:00)
[2021-12-21] MEDS: LORATADINE 10 MG TABLET PO SCH (09:00)
[2021-12-21] MEDS: DOCUSATE SODIUM 100 MG CAPSULE PO SCH ×2 (09:00→21:51)
[2021-12-21] MEDS: LIDOCAINE 5% PATCH TRANSDERM SCH (09:01)
[2021-12-21] MEDS: DEXAMETHASONE INJ 20 MG in SODIUM CHLORIDE 0.9% 50 ML IV SCH ×2 (09:01→21:51)
[2021-12-21] MEDS: MAGNESIUM CITRATE 300 ML BOTTLE PO SCH (09:07)
[2021-12-21] MEDS: cloNIDine 0.1 MG TABLET PO SCH (16:08)
[2021-12-21] MEDS: NYSTATIN 500,000 UNIT/5 ML UDCUP SWISH/SWAL SCH ×2 (17:51→21:50)
[2021-12-21] MEDS: INSULIN GLARGINE 100 UNIT/ML SUBCUT SCH (21:45)
[2021-12-22 05:39] LABS: Basophils % 0.1 % (0.0-0.8); Hematocrit 32.3 VOL% (35.7-47.0); Hemoglobin 10.7 GM/DL (12.0-16.0); Immature Granulocytes % 0.7 %; Immature Granulocytes Absolute 0.06 #; Lymphocytes # 0.5 10*3/uL (1.4-4.0); Lymphocytes % 4.9 % (21.3-54.2); Mean Corpuscular HGB Conc 33.1 GM/DL (32-36); Mean Platelet Volume 10.9 FL (9.6-12.0); Monocytes # 0.2 10*3/uL (0.11-0.8); Monocytes % 2.4 % (1.7-12.7); Neutrophils % 91.9 % (38.7-73.9); Platelet Count 95 T/CUMM (130-400); White Blood Count 9.2 T/CUMM (4-12)
[2021-12-22 06:00] LABS: Lymphocytes 4 % (20-55); Total Cells Counted 100
[2021-12-22 06:06] LABS: Albumin 2.2 G/DL (3.4-5.0); Bilirubin,Total 0.6 MG/DL (0.20-1.00); Calcium 8.1 MG/DL (8.5-10.1); Osmolality,Calculated 293.1 MOS/KG (273-304); Potassium 3.8 MMOL/L (3.5-5.1); Total Protein 5.1 G/DL (6.4-8.2)
[2021-12-22] MEDS: LEVOTHYROXINE 25 MCG TABLET PO SCH (06:44)
[2021-12-22] MEDS: ASPIRIN 325 MG TABLET PO SCH (09:06)
[2021-12-22] MEDS: POTASSIUM CHLORIDE 20 MEQ TABLET PO SCH (09:06)
[2021-12-22] MEDS: DEXAMETHASONE INJ 20 MG in SODIUM CHLORIDE 0.9% 50 ML IV SCH ×2 (09:06→22:11)
[2021-12-22] MEDS: NYSTATIN 500,000 UNIT/5 ML UDCUP SWISH/SWAL SCH ×4 (09:06→22:10)
[2021-12-22] MEDS: LIDOCAINE 5% PATCH TRANSDERM SCH (09:06)
[2021-12-22] MEDS: DAPAGLIFLOZIN 10 MG TABLET PO SCH (09:06)
[2021-12-22] MEDS: MULTIVITAMIN (CENTRUM) TABLET PO SCH (09:07)
[2021-12-22] MEDS: DOXAZOSIN 1 MG TABLET PO SCH (09:07)
[2021-12-22] MEDS: ISOSORBIDE DINITRATE 20 MG TABLET PO SCH (09:07)
[2021-12-22] MEDS: LORATADINE 10 MG TABLET PO SCH (09:07)
[2021-12-22] MEDS: DOCUSATE SODIUM 100 MG CAPSULE PO SCH ×2 (09:07→22:30)
[2021-12-22] MEDS: CITALOPRAM 20 MG TABLET PO SCH (09:08)
[2021-12-22] MEDS: PREGABALIN 50 MG CAPSULE PO SCH ×2 (09:08→22:10)
[2021-12-22] MEDS: carvediloL 25 MG TABLET PO SCH ×2 (09:08→22:10)
[2021-12-22] MEDS: PANTOPRAZOLE 40 MG TABLET PO SCH (09:08)
[2021-12-22] MEDS: hydrALAZINE 25 MG TABLET PO SCH ×3 (09:08→22:10)
[2021-12-22] MEDS: SIMVASTATIN 10 MG TABLET PO SCH (09:08)
[2021-12-22] MEDS: METHOCARBAMOL 500 MG TABLET PO SCH ×2 (09:08→22:11)
[2021-12-22] MEDS: INSULIN REGULAR 100 UNIT/ML SUBCUT SCH ×4 (09:09→22:11)
[2021-12-22] MEDS: CALCIUM (CARBONATE)/VITAMIN D 600 MG-400 UNIT TABLET PO SCH (09:09)
[2021-12-22] MEDS: amLODIPine 5 MG TABLET PO SCH (09:13)
[2021-12-22] MEDS: MAGNESIUM CITRATE 300 ML BOTTLE PO SCH (10:01)
[2021-12-22] MEDS ORDERED: hydrALAZINE 20 MG/1 ML VIAL IV PRN (12:45)
[2021-12-22 14:30] LABS: Hematocrit 31.4 VOL% (35.7-47.0); Hemoglobin 10.1 GM/DL (12.0-16.0)
[2021-12-22] MEDS: cloNIDine 0.1 MG TABLET PO SCH (15:43)
[2021-12-22] MEDS: INSULIN GLARGINE 100 UNIT/ML SUBCUT SCH (22:31)
[2021-12-23 05:38] LABS: Hematocrit 32.5 VOL% (35.7-47.0); Hemoglobin 10.5 GM/DL (12.0-16.0); Immature Granulocytes % 0.9 %; Immature Granulocytes Absolute 0.08 #; Lymphocytes # 0.5 10*3/uL (1.4-4.0); Lymphocytes % 6.1 % (21.3-54.2); Mean Corpuscular HGB Conc 32.3 GM/DL (32-36); Mean Corpuscular Volume 95.3 FL (87-102); Mean Platelet Volume 10.5 FL (9.6-12.0); Monocytes # 0.2 10*3/uL (0.11-0.8); Monocytes % 2.7 % (1.7-12.7); Neutrophils % 90.3 % (38.7-73.9); Red Blood Count 3.41 MC/CUMM (3.8-5.5); Red Cell Distribution Width 15.3 % (9.3-17.3); White Blood Count 8.7 T/CUMM (4-12)
[2021-12-23 05:43] LABS: Platelet Count 92 T/CUMM (130-400)
[2021-12-23 05:52] LABS: Albumin 2.3 G/DL (3.4-5.0); Bilirubin,Total 0.6 MG/DL (0.20-1.00); Calcium 8.2 MG/DL (8.5-10.1); Osmolality,Calculated 295.1 MOS/KG (273-304); Potassium 3.9 MMOL/L (3.5-5.1); Total Protein 5.2 G/DL (6.4-8.2)
[2021-12-23] MEDS: LEVOTHYROXINE 25 MCG TABLET PO SCH (06:11)
[2021-12-23] MEDS: ISOSORBIDE DINITRATE 20 MG TABLET PO SCH (09:06)
[2021-12-23] MEDS: CITALOPRAM 20 MG TABLET PO SCH (09:06)
[2021-12-23] MEDS: LORATADINE 10 MG TABLET PO SCH (09:06)
[2021-12-23] MEDS: DAPAGLIFLOZIN 10 MG TABLET PO SCH (09:06)
[2021-12-23] MEDS: SIMVASTATIN 10 MG TABLET PO SCH (09:06)
[2021-12-23] MEDS: POTASSIUM CHLORIDE 20 MEQ TABLET PO SCH (09:06)
[2021-12-23] MEDS: hydrALAZINE 25 MG TABLET PO SCH ×3 (09:06→20:48)
[2021-12-23] MEDS: METHOCARBAMOL 500 MG TABLET PO SCH ×2 (09:06→20:48)
[2021-12-23] MEDS: MULTIVITAMIN (CENTRUM) TABLET PO SCH (09:06)
[2021-12-23] MEDS: PREGABALIN 50 MG CAPSULE PO SCH ×2 (09:06→20:48)
[2021-12-23] MEDS: DOXAZOSIN 1 MG TABLET PO SCH (09:06)
[2021-12-23] MEDS: amLODIPine 5 MG TABLET PO SCH (09:07)
[2021-12-23] MEDS: DEXAMETHASONE INJ 20 MG in SODIUM CHLORIDE 0.9% 50 ML IV SCH ×2 (09:07→21:59)
[2021-12-23] MEDS: PANTOPRAZOLE 40 MG TABLET PO SCH (09:07)
[2021-12-23] MEDS: DOCUSATE SODIUM 100 MG CAPSULE PO SCH ×2 (09:07→20:48)
[2021-12-23] MEDS: NYSTATIN 500,000 UNIT/5 ML UDCUP SWISH/SWAL SCH ×4 (09:07→20:48)
[2021-12-23] MEDS: carvediloL 25 MG TABLET PO SCH ×2 (09:07→20:48)
[2021-12-23] MEDS: INSULIN REGULAR 100 UNIT/ML SUBCUT SCH ×4 (09:07→21:59)
[2021-12-23] MEDS: CALCIUM (CARBONATE)/VITAMIN D 600 MG-400 UNIT TABLET PO SCH (09:22)
[2021-12-23] MEDS: LIDOCAINE 5% PATCH TRANSDERM SCH (09:23)
[2021-12-23] MEDS: MAGNESIUM CITRATE 300 ML BOTTLE PO SCH (10:55)
[2021-12-23] MEDS: cloNIDine 0.1 MG TABLET PO SCH (15:08)
[2021-12-23] MEDS: INSULIN GLARGINE 100 UNIT/ML SUBCUT SCH (21:59)
[2021-12-24] MEDS: LEVOTHYROXINE 25 MCG TABLET PO SCH (06:23)
[2021-12-24] MEDS ORDERED: BORTEZOMIB SUBCUT ONE (09:00)
[2021-12-24] MEDS ORDERED: SODIUM CHLORIDE 0.9% SUBCUT ONE (09:00)
[2021-12-24] MEDS: METHOCARBAMOL 500 MG TABLET PO SCH ×2 (09:48→20:56)
[2021-12-24] MEDS: PANTOPRAZOLE 40 MG TABLET PO SCH (09:48)
[2021-12-24] MEDS: amLODIPine 5 MG TABLET PO SCH (09:48)
[2021-12-24] MEDS: LIDOCAINE 5% PATCH TRANSDERM SCH (09:48)
[2021-12-24] MEDS: MULTIVITAMIN (CENTRUM) TABLET PO SCH (09:48)
[2021-12-24] MEDS: carvediloL 25 MG TABLET PO SCH ×2 (09:49→20:57)
[2021-12-24] MEDS: POTASSIUM CHLORIDE 20 MEQ TABLET PO SCH (09:49)
[2021-12-24] MEDS: LORATADINE 10 MG TABLET PO SCH (09:49)
[2021-12-24] MEDS: PREGABALIN 50 MG CAPSULE PO SCH ×2 (09:49→20:57)
[2021-12-24] MEDS: CALCIUM (CARBONATE)/VITAMIN D 600 MG-400 UNIT TABLET PO SCH (09:49)
[2021-12-24] MEDS: ISOSORBIDE DINITRATE 20 MG TABLET PO SCH (09:49)
[2021-12-24] MEDS: DOXAZOSIN 1 MG TABLET PO SCH (09:49)
[2021-12-24] MEDS: CITALOPRAM 20 MG TABLET PO SCH (09:49)
[2021-12-24] MEDS: hydrALAZINE 25 MG TABLET PO SCH ×3 (09:49→20:58)
[2021-12-24] MEDS: SIMVASTATIN 10 MG TABLET PO SCH (09:49)
[2021-12-24] MEDS: DAPAGLIFLOZIN 10 MG TABLET PO SCH (09:49)
[2021-12-24] MEDS: NYSTATIN 500,000 UNIT/5 ML UDCUP SWISH/SWAL SCH ×4 (09:50→20:56)
[2021-12-24] MEDS: MAGNESIUM CITRATE 300 ML BOTTLE PO SCH (09:50)
[2021-12-24] MEDS: DOCUSATE SODIUM 100 MG CAPSULE PO SCH ×2 (09:50→20:57)
[2021-12-24] MEDS: INSULIN REGULAR 100 UNIT/ML SUBCUT SCH ×4 (10:58→21:09)
[2021-12-24] MEDS: DEXAMETHASONE INJ 20 MG in SODIUM CHLORIDE 0.9% 50 ML IV SCH ×2 (13:35→22:56)
[2021-12-24] MEDS ORDERED: FAMOTIDINE 20 MG TABLET PO ONE (14:15)
[2021-12-24] MEDS: cloNIDine 0.1 MG TABLET PO SCH (16:03)
[2021-12-24] MEDS: FAMOTIDINE 20 MG TABLET PO SCH (16:04)
[2021-12-24] MEDS: DOCOSANOL 10% CREAM 2 GM TUBE TOP SCH ×2 (18:42→21:10)
[2021-12-24] MEDS: INSULIN GLARGINE 100 UNIT/ML SUBCUT SCH (21:09)
[2021-12-25 05:32] LABS: Basophils % 0.1 % (0.0-0.8); Hematocrit 30.8 VOL% (35.7-47.0); Hemoglobin 10.2 GM/DL (12.0-16.0); Immature Granulocytes % 0.7 %; Immature Granulocytes Absolute 0.05 #; Lymphocytes # 0.5 10*3/uL (1.4-4.0); Lymphocytes % 6.3 % (21.3-54.2); Mean Corpuscular HGB Conc 33.1 GM/DL (32-36); Mean Corpuscular Volume 96.6 FL (87-102); Mean Platelet Volume 11.3 FL (9.6-12.0); Monocytes # 0.2 10*3/uL (0.11-0.8); Monocytes % 2.5 % (1.7-12.7); Neutrophils % 90.4 % (38.7-73.9); Platelet Count 60 T/CUMM (130-400); Red Blood Count 3.19 MC/CUMM (3.8-5.5); Red Cell Distribution Width 15.7 % (9.3-17.3); White Blood Count 7.3 T/CUMM (4-12)
[2021-12-25 05:47] LABS: Calcium 7.8 MG/DL (8.5-10.1)
[2021-12-25 06:07] LABS: Microcytosis 1+
[2021-12-25 06:08] LABS: Platelet Estimate Decreased
[2021-12-25] MEDS: DOCOSANOL 10% CREAM 2 GM TUBE TOP SCH ×5 (08:19→20:50)
[2021-12-25] MEDS: LEVOTHYROXINE 25 MCG TABLET PO SCH (08:19)
[2021-12-25] MEDS: NYSTATIN 500,000 UNIT/5 ML UDCUP SWISH/SWAL SCH ×4 (10:59→20:48)
[2021-12-25] MEDS: METHOCARBAMOL 500 MG TABLET PO SCH ×2 (10:59→20:48)
[2021-12-25] MEDS: ASPIRIN 325 MG TABLET PO SCH (10:59)
[2021-12-25] MEDS: PREGABALIN 50 MG CAPSULE PO SCH ×2 (11:00→20:48)
[2021-12-25] MEDS: MULTIVITAMIN (CENTRUM) TABLET PO SCH (11:00)
[2021-12-25] MEDS: DAPAGLIFLOZIN 10 MG TABLET PO SCH (11:00)
[2021-12-25] MEDS: ISOSORBIDE DINITRATE 20 MG TABLET PO SCH (11:00)
[2021-12-25] MEDS: DOCUSATE SODIUM 100 MG CAPSULE PO SCH ×2 (11:00→20:48)
[2021-12-25] MEDS: POTASSIUM CHLORIDE 20 MEQ TABLET PO SCH (11:00)
[2021-12-25] MEDS: hydrALAZINE 25 MG TABLET PO SCH ×3 (11:00→20:48)
[2021-12-25] MEDS: PANTOPRAZOLE 40 MG TABLET PO SCH (11:00)
[2021-12-25] MEDS: amLODIPine 5 MG TABLET PO SCH (11:00)
[2021-12-25] MEDS: carvediloL 25 MG TABLET PO SCH ×2 (11:00→20:49)
[2021-12-25] MEDS: CITALOPRAM 20 MG TABLET PO SCH (11:00)
[2021-12-25] MEDS: CALCIUM (CARBONATE)/VITAMIN D 600 MG-400 UNIT TABLET PO SCH (11:01)
[2021-12-25] MEDS: SIMVASTATIN 10 MG TABLET PO SCH (11:01)
[2021-12-25] MEDS: FAMOTIDINE 20 MG TABLET PO SCH (11:01)
[2021-12-25] MEDS: LORATADINE 10 MG TABLET PO SCH (11:01)
[2021-12-25] MEDS: LIDOCAINE 5% PATCH TRANSDERM SCH (11:02)
[2021-12-25] MEDS: MAGNESIUM CITRATE 300 ML BOTTLE PO SCH (11:02)
[2021-12-25] MEDS: DOXAZOSIN 1 MG TABLET PO SCH (11:22)
[2021-12-25] MEDS: DEXAMETHASONE INJ 20 MG in SODIUM CHLORIDE 0.9% 50 ML IV SCH ×2 (11:22→21:54)
[2021-12-25] MEDS: INSULIN REGULAR 100 UNIT/ML SUBCUT SCH ×4 (13:44→20:50)
[2021-12-25] MEDS: cloNIDine 0.1 MG TABLET PO SCH (16:47)
[2021-12-25] MEDS: INSULIN GLARGINE 100 UNIT/ML SUBCUT SCH (20:50)
[2021-12-26 05:01] LABS: Hematocrit 31.4 VOL% (35.7-47.0); Hemoglobin 10.2 GM/DL (12.0-16.0); Immature Granulocytes % 0.8 %; Immature Granulocytes Absolute 0.04 #; Lymphocytes # 0.5 10*3/uL (1.4-4.0); Lymphocytes % 10.4 % (21.3-54.2); Mean Corpuscular HGB Conc 32.5 GM/DL (32-36); Mean Corpuscular Volume 95.7 FL (87-102); Mean Platelet Volume 11.1 FL (9.6-12.0); Monocytes # 0.1 10*3/uL (0.11-0.8); Monocytes % 2.7 % (1.7-12.7); Neutrophils % 86.1 % (38.7-73.9); Platelet Count 54 T/CUMM (130-400); Red Blood Count 3.28 MC/CUMM (3.8-5.5); Red Cell Distribution Width 15.7 % (9.3-17.3); White Blood Count 5.2 T/CUMM (4-12)
[2021-12-26] MEDS: LEVOTHYROXINE 25 MCG TABLET PO SCH (05:09)
[2021-12-26] MEDS: DOCOSANOL 10% CREAM 2 GM TUBE TOP SCH ×6 (05:09→22:52)
[2021-12-26 05:12] LABS: Albumin 2.1 G/DL (3.4-5.0); Bilirubin,Total 0.4 MG/DL (0.20-1.00); Calcium 7.7 MG/DL (8.5-10.1); Osmolality,Calculated 293.1 MOS/KG (273-304); Potassium 4.1 MMOL/L (3.5-5.1); Total Protein 4.9 G/DL (6.4-8.2)
[2021-12-26 05:28] LABS: Microcytosis 1+
[2021-12-26 05:29] LABS: Platelet Estimate Decreased
[2021-12-26] MEDS: INSULIN REGULAR 100 UNIT/ML SUBCUT SCH ×4 (08:30→21:17)
[2021-12-26 09:06] LABS: Total Protein 5.1 G/DL (6.4-8.2)
[2021-12-26] MEDS: carvediloL 25 MG TABLET PO SCH ×2 (09:24→21:18)
[2021-12-26] MEDS: ISOSORBIDE DINITRATE 20 MG TABLET PO SCH (09:24)
[2021-12-26] MEDS: DAPAGLIFLOZIN 10 MG TABLET PO SCH (09:24)
[2021-12-26] MEDS: DOCUSATE SODIUM 100 MG CAPSULE PO SCH ×2 (09:25→23:27)
[2021-12-26] MEDS: DOXAZOSIN 1 MG TABLET PO SCH (09:25)
[2021-12-26] MEDS: MULTIVITAMIN (CENTRUM) TABLET PO SCH (09:25)
[2021-12-26] MEDS: PANTOPRAZOLE 40 MG TABLET PO SCH (09:25)
[2021-12-26] MEDS: FAMOTIDINE 20 MG TABLET PO SCH ×2 (09:25→21:19)
[2021-12-26] MEDS: POTASSIUM CHLORIDE 20 MEQ TABLET PO SCH (09:25)
[2021-12-26] MEDS: SIMVASTATIN 10 MG TABLET PO SCH (09:25)
[2021-12-26] MEDS: hydrALAZINE 25 MG TABLET PO SCH ×3 (09:25→21:19)
[2021-12-26] MEDS: CITALOPRAM 20 MG TABLET PO SCH (09:25)
[2021-12-26] MEDS: LORATADINE 10 MG TABLET PO SCH (09:25)
[2021-12-26] MEDS: PREGABALIN 50 MG CAPSULE PO SCH ×2 (09:26→21:18)
[2021-12-26] MEDS: amLODIPine 5 MG TABLET PO SCH (09:26)
[2021-12-26] MEDS: NYSTATIN 500,000 UNIT/5 ML UDCUP SWISH/SWAL SCH ×4 (09:26→21:18)
[2021-12-26] MEDS: CALCIUM (CARBONATE)/VITAMIN D 600 MG-400 UNIT TABLET PO SCH (09:26)
[2021-12-26] MEDS: METHOCARBAMOL 500 MG TABLET PO SCH ×2 (09:26→21:19)
[2021-12-26] MEDS: LIDOCAINE 5% PATCH TRANSDERM SCH (09:30)
[2021-12-26] MEDS: MAGNESIUM CITRATE 300 ML BOTTLE PO SCH (09:36)
[2021-12-26] MEDS: DEXAMETHASONE INJ 20 MG in SODIUM CHLORIDE 0.9% 50 ML IV SCH ×2 (12:28→22:53)
[2021-12-26] MEDS: cloNIDine 0.1 MG TABLET PO SCH (16:41)
[2021-12-26] MEDS: INSULIN GLARGINE 100 UNIT/ML SUBCUT SCH (21:18)
[2021-12-26] MEDS: FLUCONAZOLE INJ 100 MG/50 ML PREMIX IV SCH (23:28)
[2021-12-27] MEDS: LEVOTHYROXINE 25 MCG TABLET PO SCH (06:09)
[2021-12-27] MEDS: DOCOSANOL 10% CREAM 2 GM TUBE TOP SCH ×5 (06:10→22:11)
[2021-12-27 07:38] LABS: Immunoglobulin A (Chem) 104 MG/DL (70-400); Immunoglobulin G (Chem) 752 MG/DL (700-1600); Immunoglobulin M (Chem) 51 MG/DL (40-230); Total Protein (Chem) 5.1 G/DL (6.4-8.3)
[2021-12-27] MEDS: INSULIN REGULAR 100 UNIT/ML SUBCUT SCH ×4 (07:41→21:52)
[2021-12-27] MEDS: DOXAZOSIN 1 MG TABLET PO SCH (08:22)
[2021-12-27] MEDS: hydrALAZINE 25 MG TABLET PO SCH ×3 (08:22→22:09)
[2021-12-27] MEDS: DAPAGLIFLOZIN 10 MG TABLET PO SCH (08:22)
[2021-12-27] MEDS: PREGABALIN 50 MG CAPSULE PO SCH ×2 (08:22→21:54)
[2021-12-27] MEDS: NYSTATIN 500,000 UNIT/5 ML UDCUP SWISH/SWAL SCH ×4 (08:22→21:53)
[2021-12-27] MEDS: amLODIPine 5 MG TABLET PO SCH (08:23)
[2021-12-27] MEDS: PANTOPRAZOLE 40 MG TABLET PO SCH (08:23)
[2021-12-27] MEDS: DOCUSATE SODIUM 100 MG CAPSULE PO SCH ×2 (08:23→21:53)
[2021-12-27] MEDS: ISOSORBIDE DINITRATE 20 MG TABLET PO SCH (08:23)
[2021-12-27] MEDS: FAMOTIDINE 20 MG TABLET PO SCH ×2 (08:23→21:54)
[2021-12-27] MEDS: MULTIVITAMIN (CENTRUM) TABLET PO SCH (08:23)
[2021-12-27] MEDS: carvediloL 25 MG TABLET PO SCH ×2 (08:23→21:58)
[2021-12-27] MEDS: CITALOPRAM 20 MG TABLET PO SCH (08:24)
[2021-12-27] MEDS: POTASSIUM CHLORIDE 20 MEQ TABLET PO SCH (08:24)
[2021-12-27] MEDS: METHOCARBAMOL 500 MG TABLET PO SCH ×2 (08:24→21:54)
[2021-12-27] MEDS: SIMVASTATIN 10 MG TABLET PO SCH (08:24)
[2021-12-27] MEDS: LORATADINE 10 MG TABLET PO SCH (08:24)
[2021-12-27] MEDS: LIDOCAINE 5% PATCH TRANSDERM SCH (08:25)
[2021-12-27] MEDS: ALUMINUM/MAGNES/SIMETH MAX STR 30 ML UDCUP PO PRN (08:33)
[2021-12-27] MEDS: CALCIUM (CARBONATE)/VITAMIN D 600 MG-400 UNIT TABLET PO SCH (08:58)
[2021-12-27] MEDS: MAGNESIUM CITRATE 300 ML BOTTLE PO SCH (08:58)
[2021-12-27 09:00] LABS: Basophils % 0.2 % (0.0-0.8); Hematocrit 31.1 VOL% (35.7-47.0); Hemoglobin 10.2 GM/DL (12.0-16.0); Immature Granulocytes % 1.5 %; Immature Granulocytes Absolute 0.07 #; Lymphocytes # 0.4 10*3/uL (1.4-4.0); Mean Corpuscular HGB Conc 32.8 GM/DL (32-36); Mean Corpuscular Volume 95.4 FL (87-102); Mean Platelet Volume 10.7 FL (9.6-12.0); Monocytes # 0.2 10*3/uL (0.11-0.8); Monocytes % 3.1 % (1.7-12.7); Neutrophils % 86.2 % (38.7-73.9); Platelet Count 48 T/CUMM (130-400); Red Blood Count 3.26 MC/CUMM (3.8-5.5); Red Cell Distribution Width 15.8 % (9.3-17.3); White Blood Count 4.8 T/CUMM (4-12)
[2021-12-27 09:13] LABS: Calcium 7.8 MG/DL (8.5-10.1); Osmolality,Calculated 290.3 MOS/KG (273-304); Potassium 4.3 MMOL/L (3.5-5.1)
[2021-12-27 09:17] LABS: Platelet Estimate Decreased
[2021-12-27 09:35] LABS: Albumin (SPE) 2.9 G/DL (3.2-5.3); Albumin (SPE) Rel % 56.6 %; Alpha 1 (SPE) 0.1 G/DL (0.1-0.4); Alpha 1 (SPE) Rel % 2.8 %; Alpha 2 (SPE) 0.8 G/DL (0.4-1.0); Alpha 2 (SPE) Rel % 16.6 %; Beta (SPE) 0.5 G/DL (0.5-1.1); Beta (SPE) Rel % 10.3 %; Gamma (SPE) Rel % 13.7 %
[2021-12-27 09:36] LABS: Gamma (SPE) 0.7 G/DL (0.7-1.7)
[2021-12-27] MEDS: DEXAMETHASONE INJ 20 MG in SODIUM CHLORIDE 0.9% 50 ML IV SCH ×2 (12:03→22:11)
[2021-12-27 14:40] LABS: Kappa Free Light Chain 1.52 mg/dL; Lambda Free Light Chain 1.08 mg/dL
[2021-12-27] MEDS: cloNIDine 0.1 MG TABLET PO SCH (16:21)
[2021-12-27] MEDS: INSULIN GLARGINE 100 UNIT/ML SUBCUT SCH (21:52)
[2021-12-27] MEDS: FLUCONAZOLE INJ 100 MG/50 ML PREMIX IV SCH (21:53)
[2021-12-27] MEDS: MYLANTA/LIDO VISC 2:1 300 ML BOTTLE SWISH/SPIT SCH (21:59)
[2021-12-28] MEDS: DOCOSANOL 10% CREAM 2 GM TUBE TOP SCH ×5 (05:18→21:20)
[2021-12-28] MEDS: LEVOTHYROXINE 25 MCG TABLET PO SCH (05:18)
[2021-12-28 06:03] LABS: Hematocrit 30.6 VOL% (35.7-47.0); Immature Granulocytes % 0.7 %; Immature Granulocytes Absolute 0.03 #; Lymphocytes # 0.4 10*3/uL (1.4-4.0); Lymphocytes % 8.6 % (21.3-54.2); Mean Corpuscular HGB Conc 32.7 GM/DL (32-36); Mean Corpuscular Volume 96.5 FL (87-102); Mean Platelet Volume 12.2 FL (9.6-12.0); Monocytes # 0.1 10*3/uL (0.11-0.8); Monocytes % 2.7 % (1.7-12.7); Platelet Count 40 T/CUMM (130-400); Red Blood Count 3.17 MC/CUMM (3.8-5.5); Red Cell Distribution Width 15.9 % (9.3-17.3); White Blood Count 4.5 T/CUMM (4-12)
[2021-12-28 06:15] LABS: Calcium 8.1 MG/DL (8.5-10.1); Potassium 4.3 MMOL/L (3.5-5.1)
[2021-12-28 06:22] LABS: Platelet Estimate Decreased
[2021-12-28] MEDS: MYLANTA/LIDO VISC 2:1 300 ML BOTTLE SWISH/SPIT SCH ×4 (07:56→20:49)
[2021-12-28] MEDS: DAPAGLIFLOZIN 10 MG TABLET PO SCH (08:52)
[2021-12-28] MEDS: DOCUSATE SODIUM 100 MG CAPSULE PO SCH ×2 (08:52→21:20)
[2021-12-28] MEDS: DOXAZOSIN 1 MG TABLET PO SCH (08:52)
[2021-12-28] MEDS: PREGABALIN 50 MG CAPSULE PO SCH ×2 (08:52→20:40)
[2021-12-28] MEDS: CALCIUM (CARBONATE)/VITAMIN D 600 MG-400 UNIT TABLET PO SCH (08:52)
[2021-12-28] MEDS: MULTIVITAMIN (CENTRUM) TABLET PO SCH (08:52)
[2021-12-28] MEDS: LORATADINE 10 MG TABLET PO SCH (08:53)
[2021-12-28] MEDS: FAMOTIDINE 20 MG TABLET PO SCH ×2 (08:53→20:40)
[2021-12-28] MEDS: ISOSORBIDE DINITRATE 20 MG TABLET PO SCH (08:53)
[2021-12-28] MEDS: SIMVASTATIN 10 MG TABLET PO SCH (08:53)
[2021-12-28] MEDS: PANTOPRAZOLE 40 MG TABLET PO SCH (08:53)
[2021-12-28] MEDS: amLODIPine 5 MG TABLET PO SCH (08:53)
[2021-12-28] MEDS: POTASSIUM CHLORIDE 20 MEQ TABLET PO SCH (08:53)
[2021-12-28] MEDS: CITALOPRAM 20 MG TABLET PO SCH (08:53)
[2021-12-28] MEDS: METHOCARBAMOL 500 MG TABLET PO SCH ×2 (08:54→20:40)
[2021-12-28] MEDS: NYSTATIN 500,000 UNIT/5 ML UDCUP SWISH/SWAL SCH ×4 (08:54→20:40)
[2021-12-28] MEDS: LIDOCAINE 5% PATCH TRANSDERM SCH (08:54)
[2021-12-28] MEDS: hydrALAZINE 25 MG TABLET PO SCH ×3 (08:54→20:40)
[2021-12-28] MEDS: MAGNESIUM CITRATE 300 ML BOTTLE PO SCH (09:50)
[2021-12-28] MEDS: carvediloL 25 MG TABLET PO SCH ×2 (09:50→20:40)
[2021-12-28] MEDS: INSULIN REGULAR 100 UNIT/ML SUBCUT SCH ×4 (10:12→20:41)
[2021-12-28] MEDS: DEXAMETHASONE INJ 20 MG in SODIUM CHLORIDE 0.9% 50 ML IV SCH ×2 (10:21→21:43)
[2021-12-28] MEDS: ALUMINUM/MAGNES/SIMETH MAX STR 30 ML UDCUP PO PRN (10:26)
[2021-12-28] MEDS ORDERED: SKIN HEALING OINT (AQUAPHOR) 50 GM TUBE TOP PRN (14:25)
[2021-12-28] MEDS: DESITIN 4OZ/NYSTATIN 15 GRAM MIXTURE PASTE TOP SCH ×2 (15:17→20:42)
[2021-12-28] MEDS: cloNIDine 0.1 MG TABLET PO SCH (15:17)
[2021-12-28] MEDS: INSULIN GLARGINE 100 UNIT/ML SUBCUT SCH (20:41)
[2021-12-28] MEDS: FLUCONAZOLE INJ 100 MG/50 ML PREMIX IV SCH (20:43)
[2021-12-29] MEDS: DOCOSANOL 10% CREAM 2 GM TUBE TOP SCH ×5 (05:32→21:32)
[2021-12-29] MEDS: LEVOTHYROXINE 25 MCG TABLET PO SCH (05:32)
[2021-12-29] MEDS: LIDOCAINE 5% PATCH TRANSDERM SCH (08:36)
[2021-12-29] MEDS: DOCUSATE SODIUM 100 MG CAPSULE PO SCH ×2 (08:36→21:35)
[2021-12-29] MEDS: CALCIUM (CARBONATE)/VITAMIN D 600 MG-400 UNIT TABLET PO SCH (08:36)
[2021-12-29] MEDS: PREGABALIN 50 MG CAPSULE PO SCH ×2 (08:37→21:32)
[2021-12-29] MEDS: METHOCARBAMOL 500 MG TABLET PO SCH ×2 (08:37→21:32)
[2021-12-29] MEDS: NYSTATIN 500,000 UNIT/5 ML UDCUP SWISH/SWAL SCH ×4 (08:37→21:32)
[2021-12-29] MEDS: MULTIVITAMIN (CENTRUM) TABLET PO SCH (08:37)
[2021-12-29] MEDS: amLODIPine 5 MG TABLET PO SCH (08:39)
[2021-12-29] MEDS: hydrALAZINE 25 MG TABLET PO SCH ×3 (08:39→21:32)
[2021-12-29] MEDS: ISOSORBIDE DINITRATE 20 MG TABLET PO SCH (08:39)
[2021-12-29] MEDS: POTASSIUM CHLORIDE 20 MEQ TABLET PO SCH (08:39)
[2021-12-29] MEDS: DAPAGLIFLOZIN 10 MG TABLET PO SCH (08:39)
[2021-12-29] MEDS: SIMVASTATIN 10 MG TABLET PO SCH (08:39)
[2021-12-29] MEDS: DOXAZOSIN 1 MG TABLET PO SCH (08:39)
[2021-12-29] MEDS: FAMOTIDINE 20 MG TABLET PO SCH ×2 (08:39→21:32)
[2021-12-29] MEDS: LORATADINE 10 MG TABLET PO SCH (08:39)
[2021-12-29] MEDS: MAGNESIUM CITRATE 300 ML BOTTLE PO SCH (08:40)
[2021-12-29] MEDS: PANTOPRAZOLE 40 MG TABLET PO SCH (08:40)
[2021-12-29] MEDS: DESITIN 4OZ/NYSTATIN 15 GRAM MIXTURE PASTE TOP SCH ×2 (08:40→21:35)
[2021-12-29] MEDS: MYLANTA/LIDO VISC 2:1 300 ML BOTTLE SWISH/SPIT SCH ×4 (08:41→21:35)
[2021-12-29] MEDS: DEXAMETHASONE INJ 20 MG in SODIUM CHLORIDE 0.9% 50 ML IV SCH ×2 (10:13→22:46)
[2021-12-29] MEDS: SODIUM CHLORIDE 0.9% 1,000 ML IV SCH ×2 (10:13→21:53)
[2021-12-29 11:05] LABS: Hematocrit 28.8 VOL% (35.7-47.0); Hemoglobin 9.4 GM/DL (12.0-16.0); Immature Granulocytes % 0.8 %; Immature Granulocytes Absolute 0.04 #; Lymphocytes # 0.3 10*3/uL (1.4-4.0); Lymphocytes % 6.9 % (21.3-54.2); Mean Corpuscular HGB Conc 32.6 GM/DL (32-36); Mean Platelet Volume 11.7 FL (9.6-12.0); Monocytes # 0.3 10*3/uL (0.11-0.8); Monocytes % 6.3 % (1.7-12.7); Red Blood Count 2.97 MC/CUMM (3.8-5.5); Red Cell Distribution Width 15.9 % (9.3-17.3); White Blood Count 4.9 T/CUMM (4-12)
[2021-12-29 11:07] LABS: Platelet Count 38 T/CUMM (130-400)
[2021-12-29] MEDS: INSULIN REGULAR 100 UNIT/ML SUBCUT SCH ×4 (11:19→21:33)
[2021-12-29] MEDS: carvediloL 25 MG TABLET PO SCH ×2 (11:21→21:32)
[2021-12-29 11:22] LABS: Bilirubin,Total 0.4 MG/DL (0.20-1.00); Potassium 4.1 MMOL/L (3.5-5.1); Total Protein 4.5 G/DL (6.4-8.2)
[2021-12-29] MEDS: CITALOPRAM 20 MG TABLET PO SCH (11:36)
[2021-12-29] MEDS: ALUMINUM/MAGNES/SIMETH MAX STR 30 ML UDCUP PO PRN ×2 (11:52→21:35)
[2021-12-29 12:16] LABS: Anisocytosis 1+; Macrocytosis 1+; Platelet Estimate Decreased
[2021-12-29] MEDS: PIOGLITAZONE 15 MG TABLET PO SCH (14:11)
[2021-12-29] MEDS: cloNIDine 0.1 MG TABLET PO SCH (14:11)
[2021-12-29] MEDS: FLUCONAZOLE INJ 100 MG/50 ML PREMIX IV SCH (21:32)
[2021-12-29] MEDS: INSULIN GLARGINE 100 UNIT/ML SUBCUT SCH (21:35)
[2021-12-30 05:56] LABS: Basophils % 0.2 % (0.0-0.8); Hematocrit 29.3 VOL% (35.7-47.0); Hemoglobin 9.5 GM/DL (12.0-16.0); Immature Granulocytes % 0.9 %; Immature Granulocytes Absolute 0.04 #; Lymphocytes # 0.4 10*3/uL (1.4-4.0); Lymphocytes % 8.7 % (21.3-54.2); Mean Corpuscular HGB Conc 32.4 GM/DL (32-36); Mean Corpuscular Volume 96.1 FL (87-102); Mean Platelet Volume 12.8 FL (9.6-12.0); Monocytes # 0.1 10*3/uL (0.11-0.8); Monocytes % 2.6 % (1.7-12.7); Neutrophils % 87.6 % (38.7-73.9); Red Blood Count 3.05 MC/CUMM (3.8-5.5); Red Cell Distribution Width 16.1 % (9.3-17.3); White Blood Count 4.3 T/CUMM (4-12)
[2021-12-30 05:58] LABS: Platelet Count 33 T/CUMM (130-400)
[2021-12-30] MEDS ORDERED: SODIUM CHLORIDE 0.9% 1,000 ML IV PRN ×2 (06:09→09:57)
[2021-12-30 06:16] LABS: Platelet Estimate Decreased
[2021-12-30] MEDS: DEXTROSE 10% 250 ML BAG IV PRN ×2 (06:16→07:49)
[2021-12-30 06:17] LABS: Anisocytosis 1+; Macrocytosis Slight
[2021-12-30 06:23] LABS: Bilirubin,Total 0.4 MG/DL (0.20-1.00); Calcium 7.8 MG/DL (8.5-10.1); Osmolality,Calculated 285.4 MOS/KG (273-304); Potassium 4.2 MMOL/L (3.5-5.1); Total Protein 4.5 G/DL (6.4-8.2)
[2021-12-30] MEDS: DOCOSANOL 10% CREAM 2 GM TUBE TOP SCH ×5 (06:38→22:16)
[2021-12-30] MEDS: LEVOTHYROXINE 25 MCG TABLET PO SCH (06:51)
[2021-12-30] MEDS: MYLANTA/LIDO VISC 2:1 300 ML BOTTLE SWISH/SPIT SCH ×4 (07:49→21:21)
[2021-12-30] MEDS: DOXAZOSIN 1 MG TABLET PO SCH (10:04)
[2021-12-30] MEDS: POTASSIUM CHLORIDE 20 MEQ TABLET PO SCH (10:04)
[2021-12-30] MEDS: CALCIUM (CARBONATE)/VITAMIN D 600 MG-400 UNIT TABLET PO SCH (10:04)
[2021-12-30] MEDS: DOCUSATE SODIUM 100 MG CAPSULE PO SCH ×2 (10:04→21:15)
[2021-12-30] MEDS: PREGABALIN 50 MG CAPSULE PO SCH ×2 (10:04→21:21)
[2021-12-30] MEDS: LIDOCAINE 5% PATCH TRANSDERM SCH (10:05)
[2021-12-30] MEDS: carvediloL 25 MG TABLET PO SCH ×2 (10:05→21:15)
[2021-12-30] MEDS: hydrALAZINE 25 MG TABLET PO SCH ×3 (10:05→22:18)
[2021-12-30] MEDS: LORATADINE 10 MG TABLET PO SCH (10:05)
[2021-12-30] MEDS: SIMVASTATIN 10 MG TABLET PO SCH (10:05)
[2021-12-30] MEDS: MULTIVITAMIN (CENTRUM) TABLET PO SCH (10:05)
[2021-12-30] MEDS: DESITIN 4OZ/NYSTATIN 15 GRAM MIXTURE PASTE TOP SCH ×2 (10:05→21:21)
[2021-12-30] MEDS: ISOSORBIDE DINITRATE 20 MG TABLET PO SCH (10:05)
[2021-12-30] MEDS: FAMOTIDINE 20 MG TABLET PO SCH ×2 (10:05→21:15)
[2021-12-30] MEDS: amLODIPine 5 MG TABLET PO SCH (10:05)
[2021-12-30] MEDS: CITALOPRAM 20 MG TABLET PO SCH (10:05)
[2021-12-30] MEDS: METHOCARBAMOL 500 MG TABLET PO SCH ×2 (10:05→21:15)
[2021-12-30] MEDS: NYSTATIN 500,000 UNIT/5 ML UDCUP SWISH/SWAL SCH ×4 (10:06→21:15)
[2021-12-30] MEDS: SODIUM CHLORIDE 0.9% 1,000 ML IV SCH ×3 (10:15→13:18)
[2021-12-30] MEDS: MAGNESIUM CITRATE 300 ML BOTTLE PO SCH (10:16)
[2021-12-30] MEDS: PIOGLITAZONE 15 MG TABLET PO SCH (10:16)
[2021-12-30] MEDS: DAPAGLIFLOZIN 10 MG TABLET PO SCH (10:16)
[2021-12-30] MEDS: DEXAMETHASONE INJ 20 MG in SODIUM CHLORIDE 0.9% 50 ML IV SCH ×2 (10:48→22:16)
[2021-12-30] MEDS: ALUMINUM/MAGNES/SIMETH MAX STR 30 ML UDCUP PO PRN (10:48)
[2021-12-30] MEDS: SUCRALFATE 1 GM/10 ML UDCUP PO SCH ×3 (13:01→21:18)
[2021-12-30] MEDS: cloNIDine 0.1 MG TABLET PO SCH (14:30)
[2021-12-30] MEDS ORDERED: GLUCAGON 1 MG VIAL IM PRN (15:44)
[2021-12-30] MEDS ORDERED: DEXTROSE 50% 25 GM/50 ML VIAL IV PRN (15:44)
[2021-12-30] MEDS ORDERED: DAPAGLIFLOZIN 10 MG TABLET PO ONE (15:50)
[2021-12-30] MEDS ORDERED: PIOGLITAZONE 15 MG TABLET PO ONE (15:50)
[2021-12-30] MEDS: INSULIN REGULAR 100 UNIT/ML SUBCUT SCH ×3 (17:35→22:18)
[2021-12-30] MEDS: ALUMINUM/MAGNES/SIMETH MAX STR 30 ML UDCUP PO SCH (17:36)
[2021-12-30] MEDS: PANTOPRAZOLE 40 MG TABLET PO SCH (17:49)
[2021-12-30] MEDS: FLUCONAZOLE INJ 100 MG/50 ML PREMIX IV SCH (21:15)
[2021-12-30] MEDS: INSULIN GLARGINE 100 UNIT/ML SUBCUT SCH (21:16)
[2021-12-31] MEDS: ALUMINUM/MAGNES/SIMETH MAX STR 30 ML UDCUP PO SCH ×3 (04:08→18:03)
[2021-12-31 04:38] LABS: Basophils % 0.2 % (0.0-0.8); Hematocrit 29.4 VOL% (35.7-47.0); Hemoglobin 9.6 GM/DL (12.0-16.0); Immature Granulocytes % 0.9 %; Immature Granulocytes Absolute 0.04 #; Lymphocytes # 0.4 10*3/uL (1.4-4.0); Lymphocytes % 8.4 % (21.3-54.2); Mean Corpuscular HGB Conc 32.7 GM/DL (32-36); Mean Platelet Volume 11.3 FL (9.6-12.0); Monocytes # 0.2 10*3/uL (0.11-0.8); Monocytes % 3.6 % (1.7-12.7); Neutrophils % 86.9 % (38.7-73.9); Platelet Count 56 T/CUMM (130-400); Red Blood Count 3.03 MC/CUMM (3.8-5.5); Red Cell Distribution Width 16.2 % (9.3-17.3); White Blood Count 4.5 T/CUMM (4-12)
[2021-12-31] MEDS: LEVOTHYROXINE 25 MCG TABLET PO SCH (05:13)
[2021-12-31] MEDS: DOCOSANOL 10% CREAM 2 GM TUBE TOP SCH ×5 (05:13→23:20)
[2021-12-31 05:18] LABS: Albumin 2.2 G/DL (3.4-5.0); Bilirubin,Total 0.4 MG/DL (0.20-1.00); Osmolality,Calculated 296.8 MOS/KG (273-304); Potassium 4.7 MMOL/L (3.5-5.1); Total Protein 4.8 G/DL (6.4-8.2)
[2021-12-31] MEDS: SODIUM CHLORIDE 0.9% 1,000 ML IV SCH ×3 (05:35→18:27)
[2021-12-31] MEDS: DAPAGLIFLOZIN 10 MG TABLET PO SCH (09:21)
[2021-12-31] MEDS: PANTOPRAZOLE 40 MG TABLET PO SCH (09:21)
[2021-12-31] MEDS: amLODIPine 5 MG TABLET PO SCH (09:21)
[2021-12-31] MEDS: CALCIUM (CARBONATE)/VITAMIN D 600 MG-400 UNIT TABLET PO SCH (09:21)
[2021-12-31] MEDS: hydrALAZINE 25 MG TABLET PO SCH ×3 (09:21→21:26)
[2021-12-31] MEDS: PIOGLITAZONE 15 MG TABLET PO SCH (09:22)
[2021-12-31] MEDS: PREGABALIN 50 MG CAPSULE PO SCH ×2 (09:22→21:26)
[2021-12-31] MEDS: FAMOTIDINE 20 MG TABLET PO SCH ×2 (09:22→21:26)
[2021-12-31] MEDS: DOXAZOSIN 1 MG TABLET PO SCH (09:22)
[2021-12-31] MEDS: ISOSORBIDE DINITRATE 20 MG TABLET PO SCH (09:22)
[2021-12-31] MEDS: SIMVASTATIN 10 MG TABLET PO SCH (09:22)
[2021-12-31] MEDS: POTASSIUM CHLORIDE 20 MEQ TABLET PO SCH (09:22)
[2021-12-31] MEDS: METHOCARBAMOL 500 MG TABLET PO SCH ×2 (09:22→21:26)
[2021-12-31] MEDS: DOCUSATE SODIUM 100 MG CAPSULE PO SCH (09:22)
[2021-12-31] MEDS: LORATADINE 10 MG TABLET PO SCH (09:22)
[2021-12-31] MEDS: MULTIVITAMIN (CENTRUM) TABLET PO SCH (09:22)
[2021-12-31] MEDS: CITALOPRAM 20 MG TABLET PO SCH (09:23)
[2021-12-31] MEDS: NYSTATIN 500,000 UNIT/5 ML UDCUP SWISH/SWAL SCH ×4 (09:29→21:24)
[2021-12-31] MEDS: carvediloL 25 MG TABLET PO SCH (09:29)
[2021-12-31] MEDS: SUCRALFATE 1 GM/10 ML UDCUP PO SCH ×4 (09:30→21:24)
[2021-12-31] MEDS: MYLANTA/LIDO VISC 2:1 300 ML BOTTLE SWISH/SPIT SCH ×4 (09:31→21:28)
[2021-12-31] MEDS: DESITIN 4OZ/NYSTATIN 15 GRAM MIXTURE PASTE TOP SCH ×2 (09:31→21:28)
[2021-12-31] MEDS: LIDOCAINE 5% PATCH TRANSDERM SCH (09:31)
[2021-12-31] MEDS: DEXAMETHASONE INJ 20 MG in SODIUM CHLORIDE 0.9% 50 ML IV SCH ×2 (09:33→23:20)
[2021-12-31] MEDS: MAGNESIUM CITRATE 300 ML BOTTLE PO SCH (09:46)
[2021-12-31] MEDS: INSULIN REGULAR 100 UNIT/ML SUBCUT SCH ×4 (09:46→22:21)
[2021-12-31] MEDS: cloNIDine 0.1 MG TABLET PO SCH (16:42)
[2021-12-31] MEDS: FLUCONAZOLE INJ 100 MG/50 ML PREMIX IV SCH (21:27)
[2021-12-31] MEDS: carvediloL 12.5 MG TABLET PO SCH (21:27)
[2021-12-31] MEDS: INSULIN GLARGINE 100 UNIT/ML SUBCUT SCH (22:22)
[2022-01-01] MEDS: ALUMINUM/MAGNES/SIMETH MAX STR 30 ML UDCUP PO SCH ×3 (02:31→17:58)
[2022-01-01 05:33] LABS: Hematocrit 28.7 VOL% (35.7-47.0); Hemoglobin 9.3 GM/DL (12.0-16.0); Immature Granulocytes % 0.7 %; Immature Granulocytes Absolute 0.03 #; Lymphocytes # 0.3 10*3/uL (1.4-4.0); Lymphocytes % 8.2 % (21.3-54.2); Mean Corpuscular HGB Conc 32.4 GM/DL (32-36); Mean Corpuscular Volume 98.6 FL (87-102); Mean Platelet Volume 11.4 FL (9.6-12.0); Monocytes # 0.1 10*3/uL (0.11-0.8); Monocytes % 3.1 % (1.7-12.7); Platelet Count 47 T/CUMM (130-400); Red Blood Count 2.91 MC/CUMM (3.8-5.5); Red Cell Distribution Width 16.9 % (9.3-17.3); White Blood Count 4.2 T/CUMM (4-12)
[2022-01-01 05:59] LABS: Band Neutrophils 2 % (0-10); Lymphocytes 4 % (20-55); Total Cells Counted 100
[2022-01-01 06:00] LABS: Albumin 2.1 G/DL (3.4-5.0); Bilirubin,Total 0.4 MG/DL (0.20-1.00); Calcium 8.1 MG/DL (8.5-10.1); Macrocytosis Slight; Platelet Estimate Decreased; Polychromasia Slight; Potassium 4.6 MMOL/L (3.5-5.1); Total Protein 4.7 G/DL (6.4-8.2)
[2022-01-01] MEDS: LEVOTHYROXINE 25 MCG TABLET PO SCH (06:39)
[2022-01-01] MEDS: DOCOSANOL 10% CREAM 2 GM TUBE TOP SCH ×5 (06:40→22:55)
[2022-01-01] MEDS: INSULIN REGULAR 100 UNIT/ML SUBCUT SCH ×4 (08:09→21:08)
[2022-01-01] MEDS: SIMVASTATIN 10 MG TABLET PO SCH (09:15)
[2022-01-01] MEDS: amLODIPine 5 MG TABLET PO SCH (09:15)
[2022-01-01] MEDS: POTASSIUM BICARB EFFERVESCENT 20 MEQ TAB.EFF PO SCH (09:15)
[2022-01-01] MEDS: CALCIUM (CARBONATE)/VITAMIN D 600 MG-400 UNIT TABLET PO SCH (09:15)
[2022-01-01] MEDS: DOXAZOSIN 1 MG TABLET PO SCH (09:15)
[2022-01-01] MEDS: DAPAGLIFLOZIN 10 MG TABLET PO SCH (09:15)
[2022-01-01] MEDS: carvediloL 12.5 MG TABLET PO SCH ×2 (09:15→20:57)
[2022-01-01] MEDS: LORATADINE 10 MG TABLET PO SCH (09:15)
[2022-01-01] MEDS: ISOSORBIDE DINITRATE 20 MG TABLET PO SCH (09:15)
[2022-01-01] MEDS: PIOGLITAZONE 15 MG TABLET PO SCH (09:15)
[2022-01-01] MEDS: LIDOCAINE 5% PATCH TRANSDERM SCH (09:16)
[2022-01-01] MEDS: POTASSIUM CHLORIDE 20 MEQ TABLET PO SCH (09:16)
[2022-01-01] MEDS: NYSTATIN 500,000 UNIT/5 ML UDCUP SWISH/SWAL SCH ×4 (09:16→20:57)
[2022-01-01] MEDS: CITALOPRAM 20 MG TABLET PO SCH (09:16)
[2022-01-01] MEDS: SUCRALFATE 1 GM/10 ML UDCUP PO SCH ×4 (09:16→20:56)
[2022-01-01] MEDS: hydrALAZINE 25 MG TABLET PO SCH ×3 (09:16→20:56)
[2022-01-01] MEDS: METHOCARBAMOL 500 MG TABLET PO SCH ×2 (09:16→21:03)
[2022-01-01] MEDS: MULTIVITAMIN (CENTRUM) TABLET PO SCH (09:16)
[2022-01-01] MEDS: PANTOPRAZOLE 40 MG VIAL IV SCH ×2 (09:17→21:02)
[2022-01-01] MEDS: DESITIN 4OZ/NYSTATIN 15 GRAM MIXTURE PASTE TOP SCH ×2 (09:18→21:03)
[2022-01-01] MEDS: MYLANTA/LIDO VISC 2:1 300 ML BOTTLE SWISH/SPIT SCH ×4 (09:18→20:57)
[2022-01-01] MEDS: DEXAMETHASONE INJ 20 MG in SODIUM CHLORIDE 0.9% 50 ML IV SCH ×2 (11:28→22:27)
[2022-01-01] MEDS: cloNIDine 0.1 MG TABLET PO SCH (17:57)
[2022-01-01] MEDS: SODIUM CHLORIDE 0.9% 1,000 ML IV SCH ×2 (18:41→18:42)
[2022-01-01] MEDS: FLUCONAZOLE INJ 100 MG/50 ML PREMIX IV SCH (21:02)
[2022-01-01] MEDS: INSULIN GLARGINE 100 UNIT/ML SUBCUT SCH (21:08)
[2022-01-02] MEDS: ALUMINUM/MAGNES/SIMETH MAX STR 30 ML UDCUP PO SCH ×3 (01:35→19:02)
[2022-01-02 05:29] LABS: Hematocrit 30.1 VOL% (35.7-47.0); Hemoglobin 9.7 GM/DL (12.0-16.0); Immature Granulocytes % 0.9 %; Immature Granulocytes Absolute 0.03 #; Lymphocytes # 0.3 10*3/uL (1.4-4.0); Lymphocytes % 9.9 % (21.3-54.2); Mean Corpuscular HGB Conc 32.2 GM/DL (32-36); Monocytes # 0.2 10*3/uL (0.11-0.8); Monocytes % 5.8 % (1.7-12.7); Neutrophils % 83.4 % (38.7-73.9); Platelet Count 42 T/CUMM (130-400); Red Blood Count 3.07 MC/CUMM (3.8-5.5); Red Cell Distribution Width 16.6 % (9.3-17.3); White Blood Count 3.4 T/CUMM (4-12)
[2022-01-02] MEDS: DOCOSANOL 10% CREAM 2 GM TUBE TOP SCH ×5 (05:33→23:28)
[2022-01-02] MEDS: LEVOTHYROXINE 25 MCG TABLET PO SCH (05:33)
[2022-01-02 05:51] LABS: Bilirubin,Total 0.5 MG/DL (0.20-1.00); Calcium 7.8 MG/DL (8.5-10.1); Osmolality,Calculated 292.8 MOS/KG (273-304); Potassium 4.1 MMOL/L (3.5-5.1); Total Protein 4.6 G/DL (6.4-8.2)
[2022-01-02] MEDS: DEXTROSE 10% 250 ML BAG IV PRN (07:59)
[2022-01-02] MEDS: INSULIN REGULAR 100 UNIT/ML SUBCUT SCH ×3 (08:42→17:30)
[2022-01-02] MEDS: CALCIUM (CARBONATE)/VITAMIN D 600 MG-400 UNIT TABLET PO SCH (10:20)
[2022-01-02] MEDS: hydrALAZINE 25 MG TABLET PO SCH ×2 (10:20→17:27)
[2022-01-02] MEDS: PIOGLITAZONE 15 MG TABLET PO SCH (10:20)
[2022-01-02] MEDS: CITALOPRAM 20 MG TABLET PO SCH (10:20)
[2022-01-02] MEDS: DOXAZOSIN 1 MG TABLET PO SCH (10:20)
[2022-01-02] MEDS: MYLANTA/LIDO VISC 2:1 300 ML BOTTLE SWISH/SPIT SCH ×3 (10:20→18:00)
[2022-01-02] MEDS: carvediloL 6.25 MG TABLET PO SCH (10:21)
[2022-01-02] MEDS: POTASSIUM CHLORIDE 20 MEQ TABLET PO SCH (10:21)
[2022-01-02] MEDS: MULTIVITAMIN (CENTRUM) TABLET PO SCH (10:21)
[2022-01-02] MEDS: LORATADINE 10 MG TABLET PO SCH (10:21)
[2022-01-02] MEDS: NYSTATIN 500,000 UNIT/5 ML UDCUP SWISH/SWAL SCH ×3 (10:21→19:02)
[2022-01-02] MEDS: POTASSIUM BICARB EFFERVESCENT 20 MEQ TAB.EFF PO SCH (10:21)
[2022-01-02] MEDS: ISOSORBIDE DINITRATE 20 MG TABLET PO SCH (10:21)
[2022-01-02] MEDS: DAPAGLIFLOZIN 10 MG TABLET PO SCH (10:21)
[2022-01-02] MEDS: SIMVASTATIN 10 MG TABLET PO SCH (10:22)
[2022-01-02] MEDS: METHOCARBAMOL 500 MG TABLET PO SCH (10:22)
[2022-01-02] MEDS: amLODIPine 5 MG TABLET PO SCH (10:22)
[2022-01-02] MEDS: LIDOCAINE 5% PATCH TRANSDERM SCH (10:33)
[2022-01-02] MEDS: PANTOPRAZOLE 40 MG VIAL IV SCH ×2 (10:34→23:30)
[2022-01-02] MEDS: DEXAMETHASONE INJ 20 MG in SODIUM CHLORIDE 0.9% 50 ML IV SCH ×2 (10:36→23:59)
[2022-01-02] MEDS: DESITIN 4OZ/NYSTATIN 15 GRAM MIXTURE PASTE TOP SCH (10:39)
[2022-01-02] MEDS ORDERED: ALUM/MAG/SIMETH/LIDO VISC 1:1 30 ML BOTTLE PO ONE (17:08)
[2022-01-02] MEDS: cloNIDine 0.1 MG TABLET PO SCH (17:27)
[2022-01-02] MEDS: SODIUM CHLORIDE 0.9% 1,000 ML IV SCH ×2 (17:30→17:58)
[2022-01-02] MEDS: ALUM/MAG/SIMETH/LIDO VISC 1:1 30 ML BOTTLE PO SCH (23:28)
[2022-01-02] MEDS: FLUCONAZOLE INJ 100 MG/50 ML PREMIX IV SCH (23:29)
[2022-01-03] MEDS: hydrALAZINE 25 MG TABLET PO SCH ×4 (01:51→21:36)
[2022-01-03] MEDS: carvediloL 6.25 MG TABLET PO SCH ×3 (01:52→21:36)
[2022-01-03] MEDS: INSULIN REGULAR 100 UNIT/ML SUBCUT SCH ×5 (01:52→21:47)
[2022-01-03] MEDS: METHOCARBAMOL 500 MG TABLET PO SCH ×3 (01:53→21:48)
[2022-01-03] MEDS: INSULIN GLARGINE 100 UNIT/ML SUBCUT SCH ×2 (01:53→21:47)
[2022-01-03] MEDS: NYSTATIN 500,000 UNIT/5 ML UDCUP SWISH/SWAL SCH ×5 (01:53→21:47)
[2022-01-03] MEDS: MYLANTA/LIDO VISC 2:1 300 ML BOTTLE SWISH/SPIT SCH ×5 (01:53→21:48)
[2022-01-03] MEDS: DESITIN 4OZ/NYSTATIN 15 GRAM MIXTURE PASTE TOP SCH ×3 (01:54→21:48)
[2022-01-03 04:52] LABS: Basophils % 0.3 % (0.0-0.8); Hemoglobin 10.7 GM/DL (12.0-16.0); Immature Granulocytes % 0.8 %; Immature Granulocytes Absolute 0.03 #; Lymphocytes # 0.4 10*3/uL (1.4-4.0); Lymphocytes % 10.7 % (21.3-54.2); Mean Corpuscular HGB Conc 32.4 GM/DL (32-36); Mean Corpuscular Volume 95.7 FL (87-102); Mean Platelet Volume 11.4 FL (9.6-12.0); Monocytes # 0.2 10*3/uL (0.11-0.8); Monocytes % 5.6 % (1.7-12.7); Neutrophils % 82.6 % (38.7-73.9); Platelet Count 46 T/CUMM (130-400); Red Blood Count 3.45 MC/CUMM (3.8-5.5); White Blood Count 3.6 T/CUMM (4-12)
[2022-01-03] MEDS: SODIUM CHLORIDE 0.9% 1,000 ML IV SCH ×2 (05:10→15:01)
[2022-01-03 05:13] LABS: Lymphocytes 5 % (20-55); Platelet Estimate Decreased; Total Cells Counted 100
[2022-01-03 05:15] LABS: Albumin 2.1 G/DL (3.4-5.0); Bilirubin,Total 0.7 MG/DL (0.20-1.00); Calcium 7.5 MG/DL (8.5-10.1); Osmolality,Calculated 287.3 MOS/KG (273-304); Potassium 3.8 MMOL/L (3.5-5.1); Total Protein 4.9 G/DL (6.4-8.2)
[2022-01-03] MEDS: LEVOTHYROXINE 25 MCG TABLET PO SCH (06:24)
[2022-01-03] MEDS: DOCOSANOL 10% CREAM 2 GM TUBE TOP SCH ×5 (06:24→21:49)
[2022-01-03] MEDS: PIOGLITAZONE 15 MG TABLET PO SCH (11:04)
[2022-01-03] MEDS: ALUM/MAG/SIMETH/LIDO VISC 1:1 30 ML BOTTLE PO SCH ×3 (11:04→21:49)
[2022-01-03] MEDS: METOCLOPRAMIDE 10 MG/10 ML UDCUP PO SCH ×4 (11:04→21:48)
[2022-01-03] MEDS: DOXAZOSIN 1 MG TABLET PO SCH (11:05)
[2022-01-03] MEDS: MULTIVITAMIN (CENTRUM) TABLET PO SCH (11:05)
[2022-01-03] MEDS: CITALOPRAM 20 MG TABLET PO SCH (11:05)
[2022-01-03] MEDS: CALCIUM (CARBONATE)/VITAMIN D 600 MG-400 UNIT TABLET PO SCH (11:05)
[2022-01-03] MEDS: POTASSIUM CHLORIDE 20 MEQ TABLET PO SCH (11:06)
[2022-01-03] MEDS: LIDOCAINE 5% PATCH TRANSDERM SCH (11:06)
[2022-01-03] MEDS: POTASSIUM BICARB EFFERVESCENT 20 MEQ TAB.EFF PO SCH (11:06)
[2022-01-03] MEDS: ISOSORBIDE DINITRATE 20 MG TABLET PO SCH (11:06)
[2022-01-03] MEDS: LORATADINE 10 MG TABLET PO SCH (11:06)
[2022-01-03] MEDS: DAPAGLIFLOZIN 10 MG TABLET PO SCH (11:06)
[2022-01-03] MEDS: SIMVASTATIN 10 MG TABLET PO SCH (11:07)
[2022-01-03] MEDS: amLODIPine 5 MG TABLET PO SCH (11:07)
[2022-01-03] MEDS: PANTOPRAZOLE 40 MG VIAL IV SCH ×2 (11:38→21:48)
[2022-01-03] MEDS: DEXAMETHASONE INJ 20 MG in SODIUM CHLORIDE 0.9% 50 ML IV SCH (11:42)
[2022-01-03] MEDS: cloNIDine 0.1 MG TABLET PO SCH (16:42)
[2022-01-03] MEDS: FLUCONAZOLE INJ 200 MG/100 ML PREMIX IV SCH (21:36)
[2022-01-04] MEDS: ALUM/MAG/SIMETH/LIDO VISC 1:1 30 ML BOTTLE PO SCH ×3 (05:29→23:24)
[2022-01-04] MEDS: LEVOTHYROXINE 25 MCG TABLET PO SCH (05:29)
[2022-01-04] MEDS: DOCOSANOL 10% CREAM 2 GM TUBE TOP SCH ×5 (05:29→23:24)
[2022-01-04 06:22] LABS: Hematocrit 31.6 VOL% (35.7-47.0); Hemoglobin 10.5 GM/DL (12.0-16.0); Immature Granulocytes % 0.6 %; Immature Granulocytes Absolute 0.02 #; Lymphocytes # 0.4 10*3/uL (1.4-4.0); Lymphocytes % 11.9 % (21.3-54.2); Mean Corpuscular HGB Conc 33.2 GM/DL (32-36); Mean Corpuscular Volume 95.2 FL (87-102); Mean Platelet Volume 11.4 FL (9.6-12.0); Monocytes # 0.2 10*3/uL (0.11-0.8); Monocytes % 6.7 % (1.7-12.7); Neutrophils % 80.8 % (38.7-73.9); Red Blood Count 3.32 MC/CUMM (3.8-5.5); Red Cell Distribution Width 16.1 % (9.3-17.3); White Blood Count 3.1 T/CUMM (4-12)
[2022-01-04 06:24] LABS: Platelet Count 39 T/CUMM (130-400)
[2022-01-04 06:38] LABS: Bilirubin,Total 0.7 MG/DL (0.20-1.00); Calcium 7.6 MG/DL (8.5-10.1); Osmolality,Calculated 289.4 MOS/KG (273-304); Potassium 3.7 MMOL/L (3.5-5.1); Total Protein 4.6 G/DL (6.4-8.2)
[2022-01-04 06:46] LABS: Band Neutrophils 3 % (0-10); Lymphocytes 5 % (20-55); Platelet Estimate Decreased; Total Cells Counted 100
[2022-01-04] MEDS: METHOCARBAMOL 500 MG TABLET PO SCH ×2 (10:40→22:56)
[2022-01-04] MEDS: carvediloL 6.25 MG TABLET PO SCH ×2 (10:40→22:32)
[2022-01-04] MEDS: hydrALAZINE 25 MG TABLET PO SCH ×3 (10:40→22:32)
[2022-01-04] MEDS: DESITIN 4OZ/NYSTATIN 15 GRAM MIXTURE PASTE TOP SCH ×2 (10:41→21:50)
[2022-01-04] MEDS: PANTOPRAZOLE 40 MG VIAL IV SCH ×2 (10:42→22:43)
[2022-01-04] MEDS: SODIUM CHLORIDE 0.9% 1,000 ML IV SCH ×3 (10:46→15:25)
[2022-01-04] MEDS: MYLANTA/LIDO VISC 2:1 300 ML BOTTLE SWISH/SPIT SCH ×4 (11:52→22:42)
[2022-01-04] MEDS: INSULIN REGULAR 100 UNIT/ML SUBCUT SCH ×4 (11:52→22:35)
[2022-01-04] MEDS: METOCLOPRAMIDE 10 MG/10 ML UDCUP PO SCH ×4 (11:52→22:56)
[2022-01-04] MEDS: PIOGLITAZONE 15 MG TABLET PO SCH (11:53)
[2022-01-04] MEDS: LORATADINE 10 MG TABLET PO SCH (11:54)
[2022-01-04] MEDS: MULTIVITAMIN (CENTRUM) TABLET PO SCH (11:54)
[2022-01-04] MEDS: CALCIUM (CARBONATE)/VITAMIN D 600 MG-400 UNIT TABLET PO SCH (11:54)
[2022-01-04] MEDS: DOXAZOSIN 1 MG TABLET PO SCH (11:54)
[2022-01-04] MEDS: ISOSORBIDE DINITRATE 20 MG TABLET PO SCH (11:54)
[2022-01-04] MEDS: DEXAMETHASONE 4 MG TABLET PO SCH (11:54)
[2022-01-04] MEDS: DAPAGLIFLOZIN 10 MG TABLET PO SCH (11:54)
[2022-01-04] MEDS: POTASSIUM BICARB EFFERVESCENT 20 MEQ TAB.EFF PO SCH (11:55)
[2022-01-04] MEDS: POTASSIUM CHLORIDE 20 MEQ TABLET PO SCH (11:55)
[2022-01-04] MEDS: NYSTATIN 500,000 UNIT/5 ML UDCUP SWISH/SWAL SCH ×4 (11:57→22:42)
[2022-01-04] MEDS: LIDOCAINE 5% PATCH TRANSDERM SCH (11:57)
[2022-01-04] MEDS: amLODIPine 5 MG TABLET PO SCH (11:58)
[2022-01-04] MEDS: SIMVASTATIN 10 MG TABLET PO SCH (11:58)
[2022-01-04] MEDS: cloNIDine 0.1 MG TABLET PO SCH (16:24)
[2022-01-04] MEDS: FLUCONAZOLE INJ 200 MG/100 ML PREMIX IV SCH (22:34)
[2022-01-04] MEDS: INSULIN GLARGINE 100 UNIT/ML SUBCUT SCH (22:36)
[2022-01-05] MEDS: ALUM/MAG/SIMETH/LIDO VISC 1:1 30 ML BOTTLE PO SCH (07:28)
[2022-01-05] MEDS: DOCOSANOL 10% CREAM 2 GM TUBE TOP SCH ×3 (07:28→10:13)
[2022-01-05] MEDS: LEVOTHYROXINE 25 MCG TABLET PO SCH (07:29)
[2022-01-05] MEDS: INSULIN REGULAR 100 UNIT/ML SUBCUT SCH (08:23)
[2022-01-05 08:24] VITALS: BP 160/62
[2022-01-05] MEDS: SODIUM CHLORIDE 0.9% 1,000 ML IV SCH ×2 (08:38→11:44)
[2022-01-05] MEDS: MYLANTA/LIDO VISC 2:1 300 ML BOTTLE SWISH/SPIT SCH (08:40)
[2022-01-05] MEDS: METOCLOPRAMIDE 10 MG/10 ML UDCUP PO SCH (08:40)
[2022-01-05] MEDS: CALCIUM (CARBONATE)/VITAMIN D 600 MG-400 UNIT TABLET PO SCH (08:41)
[2022-01-05] MEDS: PIOGLITAZONE 15 MG TABLET PO SCH (08:41)
[2022-01-05] MEDS: hydrALAZINE 25 MG TABLET PO SCH (08:41)
[2022-01-05] MEDS: carvediloL 6.25 MG TABLET PO SCH (08:41)
[2022-01-05] MEDS: DEXAMETHASONE 4 MG TABLET PO SCH (08:41)
[2022-01-05] MEDS: DOXAZOSIN 1 MG TABLET PO SCH (08:41)
[2022-01-05] MEDS: LORATADINE 10 MG TABLET PO SCH (08:41)
[2022-01-05] MEDS: MULTIVITAMIN (CENTRUM) TABLET PO SCH (08:41)
[2022-01-05] MEDS: POTASSIUM CHLORIDE 20 MEQ TABLET PO SCH (08:42)
[2022-01-05] MEDS: POTASSIUM BICARB EFFERVESCENT 20 MEQ TAB.EFF PO SCH (08:42)
[2022-01-05] MEDS: ISOSORBIDE DINITRATE 20 MG TABLET PO SCH (08:42)
[2022-01-05] MEDS: DAPAGLIFLOZIN 10 MG TABLET PO SCH (08:42)
[2022-01-05] MEDS: LIDOCAINE 5% PATCH TRANSDERM SCH (08:42)
[2022-01-05] MEDS: PANTOPRAZOLE 40 MG VIAL IV SCH (08:43)
[2022-01-05] MEDS: NYSTATIN 500,000 UNIT/5 ML UDCUP SWISH/SWAL SCH (08:43)
[2022-01-05] MEDS: amLODIPine 5 MG TABLET PO SCH (08:43)
[2022-01-05] MEDS: METHOCARBAMOL 500 MG TABLET PO SCH (08:44)
[2022-01-05] MEDS: SIMVASTATIN 10 MG TABLET PO SCH (08:44)
[2022-01-05] MEDS: DESITIN 4OZ/NYSTATIN 15 GRAM MIXTURE PASTE TOP SCH (08:45)
== END 2022-01-05 10:10 | disposition hospice, home (50) | DRG 846 ==
LOC: N.TELES 18:03
PROVIDERS: ADMIT Internal Medicine; ATTEND Internal Medicine